=== PATIENT | male | born 1955 | race Caucasian/White ===

== ENCOUNTER 2021-08-05 08:00 | Outpatient (CLI) | payer MEDICARE, SELFPAY ==
--- NOTE | 2021-08-05 | IMM_PTH ---
PATIENT: MARIAH SUAZO LOC: [facility] U#:[id number] AGE/SX: 66/M ROOM: RE08/05/[address]: Dr. Carlos Booth MD : 1955 BED: DIS: 08/05/2021 SPEC #: [id number] RECD: 08/27/21 12:15 STATUS: JIN REQ #: [id number] RAYA: 08/05/21 00:[address]: Carlos Booth DEPT: IMMUNOHISTOCHEMISTRY RECD BY: Jessica Nieves ENTERED: 08/27/21 12:18 SP TYPE: IMMUNO OTHR DR: MD Elana Martinez, SOCIAL MEDIA EDITOR-C Tissues: C - PROSTATE LEFT Procedures: Synapto (add) MLH-1 (add) MSH6 (add) Anti-PMS2 (add) CEA (add) CHROMO (add) CK8 (add) MSH2 (initial) NSE (add) CD56 (initial) PHYSICIAN & INSTITUTION [address] [address] SPECIMEN INFORMATION: Tissue Source: C ? Left prostate, base, core biopsy Clinical Info: Malignant neoplasm of prostate Specimen Number: [id number] CPT code: 93370 x2, 42936 x9 METHODOLOGY: Deparaffinized sections of prefer/formalin-fixed tissue or PAP/DQ stained slides are incubated with monoclonal/polyclonal antibodies/oligonucleotide probes. Localization is made via biotin free immunoperoxidase method. Appropriate controls are performed and reacted as expected. Results on target cell population are indicated in the following table: RESULTS: ANTIBODY / CLONE RESULT Block C MLH-1 (M1) positive MSH2 (25D12) positive MSH6 (44) positive PMS2 (NKL3836) positive These tests were developed and their performance characteristics determined by [facility]. They may not have been cleared or approved by the U.S. Food and Drug Administration. The FDA has determined that such clearance or approval is not necessary. The above immunohistochemical/dualISH markers are ordered by Dr. Upton and reviewed by the Pathologist. INTERPRETATION: C. Left prostate, base, core biopsy: Result of Microsatellite Instability Study: Negative (no loss of mismatch protein; no microsatellite instability detected). AM:christa 08/28/2021 ADDENDUM ADDENDUM ADDENDUM ADDENDUM ADDENDUM ADDENDUM ADDENDUM ADDENDUM ADDENDUM ADDENDUM ADDENDUM ADDENDUM ADDENDUM ADDENDUM ADDENDUM ADDENDUM 09/10/2021 12:06 ADDENDUM 09/10/2021 12:06 ADDENDUM 09/10/2021 12:06 ADDENDUM 09/10/2021 12:06 ADDENDUM 09/10/2021 12:06 ANTIBODY / CLONE RESULT Block A CD56 (123C3.D5) negative Chromo (LK2H10) negative Synapto (polyclonal) negative NSE Neuron Specific Enolase negative CK8 (54tjcoB11) positive CEA (11-7/TF-3HB-1) negative The above immunohistochemical/dualISH markers are ordered by Dr. Upton and reviewed by the pathologist. A. Right prostate, mid, core biopsy: No evidence of neuroendocrine differentiation. AM:christa 09/10/2021
--- NOTE | 2021-08-05 | PROSBIL_PTH ---
PATIENT: MARIAH SUAZO [facility]: [facility] U#:[id number] AGE/SX: 66/M ROOM: RE08/05/[address]: Dr. Carlos Booth MD : 1955 BED: DIS: 08/05/2021 SPEC #: [id number] RECD: 08/06/21 09:55 STATUS: JIN DESTINY #: [id number] RAYA: 08/05/21 00:[address]: Carlos Booth DEPT: SURGICAL PATHOLOGY RECD BY: Mina Tavarez ENTERED: 08/06/21 09:56 SP TYPE: PROST BX RAJI DR: Elana Cobb, FORKLIFT SUPERVISOR-C Tissues: A - PROSTATE RIGHT B - PROSTATE LEFT C - PROSTATE LEFT Procedures: PROSTATE BX HEADER OPERATION: Prostate biopsy PRE-OP DIAGNOSIS: Elevated PSA TISSUE SUBMITTED: A - Right mid, B - Left mid, C - Left base MICROSCOPIC DIAGNOSIS A. Right prostate, mid, core biopsy: Adenocarcinoma. Rudolph grade: 10 (5+5) Cores involved: 2 out of 2 cores Tissue involved: 100% Greatest tumor length: 9 millimeters B. Left prostate, mid, core biopsy: Adenocarcinoma. Rudolph grade: 10 (5+5) Cores involved: 2 out of 2 cores Tissue involved: 100% Greatest tumor length: 4.5 millimeters C. Left prostate, base, core biopsy: Adenocarcinoma. Yossi grade: 10 (5+5) Cores involved: 1 out of 1 core Tissue involved: 100% Greatest tumor length: 10.5 millimeters Perineural invasion: Present AM:christa 08/07/2021 MICROSCOPIC DESCRIPTION Slides are reviewed. GROSS DESCRIPTION A - Received is one container designated prostate, right mid. The specimen consists of two elongated fragments of light ocampo-white soft tissue each measuring 1.5 cm in length and 0.1 cm in diameter. The specimen is totally submitted in one cassette. B - Received is one container designated prostate, left mid. The specimen consists of two elongated fragments of light ocampo-white soft tissue each measuring 1.5 cm in length and 0.1 cm in diameter. The specimen is totally submitted in one cassette. C - Received is one container designated prostate, left base. The specimen consists of one elongated fragment of light ocampo-white soft tissue measuring 1.5 cm in length and 0.1 cm in diameter. The specimen is totally submitted in one cassette. / AM:christa 08/06/2021 TC:0 CPT: G0146 ADDENDUM ADDENDUM ADDENDUM ADDENDUM ADDENDUM ADDENDUM ADDENDUM ADDENDUM ADDENDUM ADDENDUM ADDENDUM ADDENDUM ADDENDUM ADDENDUM ADDENDUM ADDENDUM ADDENDUM 09/15/2021 09:27 ADDENDUM 09/15/2021 09:27 ADDENDUM 09/15/2021 09:27 ADDENDUM 09/15/2021 09:27 ADDENDUM 09/15/2021 09:27 ONKOSIGHT ADVANCED PROSTATE NGS REPORT FROM [facility] RESULT SUMMARY: Normal IMMUNOTHERAPY BIOMARKERS: Tumor Mutation [place]: Low (4.7 Mutations / MB) Microsatellite Instability: MSI Negative PERTINENT NEGATIVE RESULTS: The following genes are NEGATIVE for clinically relevant mutations. Mutational hotspots and surrounding exonic regions were interrogated for DNA level point mutations and indels (fusions not assayed). AR, ARID1A, DAVID, ATR, BARD1, BRCA1, BRCA2, BRIP1, CDK12, CHEK1, CHEK2, EPCAM, PSB289W, FANCA, FANCL, GEN1, HOXB13, MLH1, MRE11A, MSH2, MSH6, MUTYH, NBN, NTRK1, PALB2, PMS2, MRH9E8Q, PTEN, RAD51B, RAD51C, RAD51D, RAD54L, RB1, TERT, TP53 Please see complete report in e-chart or EMR
== END 2021-08-05 23:59 | disposition short-term general hospital (02) ==
PROVIDERS: PCP Nurse Practitioner Primary Care; Visit Provider Urology
DX: C61 Malignant neoplasm of prostate (principal)
CPT/HCPCS: 88305; 88341; 88342; G0416

== ENCOUNTER 2021-08-13 12:52 | Outpatient (CLI) | payer MEDICARE, OTHER, SELFPAY ==
--- NOTE | 2021-08-13 13:05 | CT_ITS ---
STUDY: CT ABDOMEN AND PELVIS WITH CONTRAST REASON FOR EXAM: Male, 66 years old. PROSTATE CA-NEW DIAGNOSIS RADIATION DOSAGE (If Supplied By Facility): CTDIvol = ( 17.23 ) mGy, DLP = ( 2058.13 ) mGycm TECHNIQUE: Transaxial images were obtained from the dome of the diaphragm to the symphysis pubis without oral contrast. IV 100mL Isovue-370 was administered. Sagittal and coronal images were reconstructed. Individualized dose optimization techniques were used for this CT. COMPARISON: None. FINDINGS: There are small scattered noncalcified nodules at the lung bases. A dedicated CT scan of the chest is recommended for further evaluation. The visualized portions of the heart are within normal limits. Normal liver. The gallbladder is contracted. Normal spleen. Normal pancreas. 51.3 cm fat-containing nodule in the upper aspect of the left adrenal gland suggestive of a small lipoma. There is also evidence of a 1.9 cm x 1.9 cm hypodense nodule in its inferior portion. This is not a typical cyst. A metastatic deposit should be ruled out. Mild degree of right hydronephrosis and right hydroureter down to the right ureterovesical junction. There is diffuse bladder wall thickening along the right side of the bladder. There is a marked degree of enlargement of the prostate gland. This is heterogeneous in appearance. It measures 7.7 cm x 9.3 cm by 6.8 cm. This extends into the base of the bladder worse on the right side most likely causing the right-sided hydronephrosis and hydroureter. Normal left kidney. Normal visualized stomach. Normal small intestine. Normal colon. The appendix is visualized and appears normal. Normal abdominal aorta. Normal inferior vena cava. Normal retroperitoneum. Normal abdominal wall. There are diffuse degenerative changes of the visualized lumbar spine. CT/Abdomen/Pelvis W IV Cont ONLY IMPRESSION: Moderate degree of heterogeneous enlargement of the prostate gland as described with extension into the base of the bladder and the right side of the bladder causing a mild degree of right hydronephrosis and right hydroureter. Nodular densities in the left adrenal gland as described. Noncalcified pulmonary nodules. Correlation with the CT scan of the chest is recommended for further evaluation. Electronically Signed: Raj Keller MD at 14:58 EST ,
[2021-08-13 13:36] LABS: EGFR FINGERSTICK > 60.0000 mL/min (>60)
== END 2021-08-13 23:59 | disposition home or self-care (01) ==
PROVIDERS: PCP Nurse Practitioner Primary Care; Referring Provider Urology; Visit Provider Urology
DX: C61 Malignant neoplasm of prostate (principal)
CPT/HCPCS: 74177; Q9967

== ENCOUNTER 2021-08-15 07:28 | Outpatient (CLI) | payer MEDICARE, OTHER, SELFPAY ==
--- NOTE | 2021-08-15 07:37 | NM_ITS ---
CLINICAL: 66-year-old male with reported history of carcinoma of the prostate. WHOLE BODY 99m Tc MDP RADIONUCLIDE BONE SCINTIGRAPHY COMPARISON: CT of the abdomen-pelvis report 08/13/2021 FINDINGS: Following the intravenous administration of 20.7 mCi of 99m Tc MDP, whole body bone images reveal: 1. Multiple foci of increased radiopharmaceutical concentration are defined within the axial skeletal structures (too many to individually articulate) to include multiple bilateral ribs, thoracic and lumbar vertebra, left sacral ala, posterior ilium and posterior sacrum, the right superior pubic ramus, the pubic symphysis, mid-distal sternum. 2. Facilitated tracer uptake is defined in the left ankle articulation, sternoclavicular compartment of the left shoulder, bilateral wrists. 3. The remaining skeletal structures are scintigraphically unremarkable with normal-appearing renal images and urinary bladder activity identified. There appears to be evidence of presumably asymptomatic bilateral knee hemiarthroplasties with minimal increased tracer uptake most consistent with normal postsurgical change. NM/Bone Scan Whole Body IMPRESSION: 1. The increase in radiopharmaceutical concentration multifocally defined in the axial skeletal structures is consistent with diffuse osseous metastatic disease. 2. 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 Plain film radiography correlation may be of benefit in the region of the left ankle to exclude previous trauma-fracture. Electronically Signed: Navarro Spear DO at 7:55 EST ,
== END 2021-08-15 23:59 | disposition home or self-care (01) ==
PROVIDERS: PCP Nurse Practitioner Primary Care; Referring Provider Urology; Visit Provider Urology
DX: C61 Malignant neoplasm of prostate (principal)
CPT/HCPCS: 78306; A9503

== ENCOUNTER 2021-08-27 09:32 | Day surgery (SDC) | payer MEDICARE, SELFPAY ==
--- NOTE | 2021-08-26 09:21 | EKG12_ITS ---
Test Reason : PREOP Blood Pressure : / mmHG Vent. Rate : 083 BPM Atrial Rate : 083 BPM P-R Int : 140 ms QRS Dur : 092 ms QT Int : 372 ms P-R-T Axes : 027 -03 015 degrees QTc Int : 437 ms Normal sinus rhythm Normal ECG Confirmed by BRITTANI VICENTE, JEANIE ([id number]), scientific publications editor SHARMAINE LOU ([id number]) on 08/27/2021 8:13:49 AM Referred By: Calros Booth Confirmed By:JEANIE PETER MD
[2021-08-27] VITALS (12 sets, daily range): BP systolic 71–153; BP diastolic 34–106; PULSE 53–83; RESP 16–18; TEMP 36–36.6; O2SAT 93–100; BMI 29.6; BMI 30.1
--- NOTE | 2021-08-27 | TEST_PTH ---
PATIENT: MARIAH SUAZO [place] [facility] [place][id number] AGE/SX: 66/M ROOM: RE08/27/[address]: Dr. Carlos Booth MD : 1955 BED: DIS: 08/28/2021 SPEC #: [id number] RECD: 08/27/21 14:47 STATUS: JIN RERaj #: [id number] RAYA: 08/27/21 00:[address]: Carlos Booth DEPT: SURGICAL PATHOLOGY RECD BY: Mina Tavarez ENTERED: 08/28/21 08:45 SP TYPE: TESTICLE OTHR DR: Elana Cobb, K9 HANDLER-C Tissues: A - Testis, NOS B - Prostate, NOS Procedures: Surgery Specimen Level IV HEADER OPERATION: Cysto, transurethral prostate, Olympus, bilateral simple orchiectomy PRE-OP DIAGNOSIS: Malignant neoplasm of prostate, elevated PSA TISSUE SUBMITTED: A ? Bilateral testicles, B ? Prostate tissue MICROSCOPIC DIAGNOSIS A. Right and left testicles, bilateral orchiectomy: No pathologic change. B. Prostate, transurethral resection: Prostatic adenocarcinoma, Yossi 10 (5+5). See comment. AM:christa 09/01/2021 COMMENT A. PROSTATE CANCER (TUR) SUMMARY: Procedure: transurethral resection of prostate (TURP) Histologic type: adenocarcinoma Histologic grade: Percent of pattern 4: 0% Percent of pattern 5: 100% Intraductal carcinoma: Not identified Estimated percent of tissue involved: 30% Greatest dimension: 8 mm Periprostatic fat invasion: Not applicable Seminal vesicle invasion: Not applicable Lymphvascular invasion: Not identified Perineural invasion: Not identified Treatment effect: Unknown Additional pathologic findings: Chronic inflammation and benign hyperplasia. The above summary is in compliance with [employer] of [place] [employer] (CAP) Cancer Protocols Checklist and [place] Joint Committee on Cancer (AJCC), Staging Manual, 8th Ed. A. Immunohistochemistry ([id number]) supports the above diagnosis. Clinical correlation is suggested. Reference is made to the patient's previous prostate biopsies ([id number]) in which [place]putanta grade 10 prostatic adenocarcinoma was identified. MICROSCOPIC DESCRIPTION Slides are reviewed. GROSS DESCRIPTION A - Received in fixative is one container labeled with the patient's name and designated bilateral testes. The specimen consists of two testes that are not designated. The average dimension of each testis is 5 x 3.8 x 3 cm. Serial sections do not reveal mass lesions. Help Desk Support sections are submitted as follows: 1-3 ? sales representative meats sections from one testis, 4-6 ? sales representative meats sections from the other testis. B - Received is one container labeled with the patient's name and designated prostate tissue. The specimen consists of multiple irregular fragments of pink-ocampo, rubbery, soft tissue that in aggregate weigh 7.5 gm and measure in aggregate 6 x 5 x 0.4 cm. The entire specimen is submitted in six cassettes. / AM:christa 08/28/2021 TC:0 CPT: 50336 x3
--- NOTE | 2021-08-27 | IMM_PTH ---
PATIENT: MARIAH SUAZO LOC: [facility] [place] U#:[id number] AGE/SX: 66/M ROOM: RE08/27/[address]: Dr. Carlos Booth MD : 1955 BED: DIS: 08/28/2021 SPEC #: [id number] RECD: 08/29/21 11:47 STATUS: JIN REQ #: [id number] RAYA: 08/27/21 00:[address]: Carlos Booth DEPT: IMMUNOHISTOCHEMISTRY RECD BY: Jessica Nieves ENTERED: 08/29/21 11:48 SP TYPE: IMMUNO OTHR DR: Elana Cobb, MIGRANT LEADER-C Tissues: B - Prostate, NOS Procedures: CK20 (add) CK7 (add) CK8 (add) CD44 (add) PSA (initial) PHYSICIAN & INSTITUTION [place] [address] SPECIMEN INFORMATION: Tissue Source: B ? Prostate tissue Clinical Info: Malignant neoplasm of prostate, elevated PSA Specimen Number: [id number] CPT code: 87511, 92603 x4 METHODOLOGY: Deparaffinized sections of prefer/formalin-fixed tissue or PAP/DQ stained slides are incubated with monoclonal/polyclonal antibodies/oligonucleotide probes. Localization is made via biotin free immunoperoxidase method. Appropriate controls are performed and reacted as expected. Results on target cell population are indicated in the following table: RESULTS: ANTIBODY / CLONE RESULT Block B4 PSA (ER-PR8) positive CK7 (OV-TL12/30) negative CK8 (71yfabO13) positive CK20 (KS20.8) negative anti-CD44 (SP37) positive These tests were developed and their performance characteristics determined by [facility]. They may not have been cleared or approved by the U.S. Food and Drug Administration. The FDA has determined that such clearance or approval is not necessary. The above immunohistochemical/dualISH markers are ordered and reviewed by the Pathologist. INTERPRETATION: B. Prostate, transurethral resection: Consistent with prostatic carcinoma. AM:christa 09/01/2021
[2021-08-27] MEDS: Lactated Ringers 1,000 ML 15 ML IV ×2 (09:45→14:38)
[2021-08-27] MEDS: Cefazolin 2 GM in 0.9% Normal Saline 100 ML IV (12:35)
[2021-08-27] MEDS: Bupivacaine Mpf 0.5% 30 ML VIAL (13:00)
--- NOTE | 2021-08-27 14:33 | PCM.HP.STD ---
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 [facility] Medical History (Updated 08/25/21 @ 16:[address] Adiel Upton MD) Alcohol use Bone metastases Former smoker Lung nodules Prostate cancer Home Medications bicalutamide [Casodex] 50 mg PO DAILY 30 Days #30 tab 08/25/21 [Rx Last Taken 08/26/21] calcium citrate-vitamin D3 1 tab PO DAILY 08/25/21 [History Last Taken 08/26/21] ciprofloxacin HCl [Cipro] 500 mg PO BID #14 tab 08/27/21 [Rx Last Taken Unknown] oxycodone-acetaminophen 1 tab PO Q6H PRN 7 Days #20 tab 08/27/21 [Rx Last Taken Unknown] tamsulosin [Flomax] 0.4 mg PO DAILY #30 cap 08/27/21 [Rx Last Taken Unknown] Allergy/AdvReac Type Severity Reaction Status Date / Time No Known Allergies Allergy Verified 08/25/21 13:00 Family History (Updated 08/25/21 @ 13:04 by Nikki Atkinson) Brother Lung cancer Brother Esophageal cancer Father Diabetes Surgical History (Updated 08/25/21 @ 13:01 by Nikki Atkinson) History of colonoscopy History of knee surgery Previous back surgery Social History (Updated 08/25/21 @ 13:03 by Nikki Atkinson) Smoking Status: Former smoker quit date: 07/05/03 Tobacco: How many years used: 15 alcohol intake: current alcohol intake frequency: a few times a week Alcohol type: beer substance use type: does not use caffeine: Yes Type: coffee Number of servings: 2 Vital Signs Vital Signs Vital Signs: 08/27/21 10:02 Temperature 97.6 F L Temperature Source Temporal Pulse Rate 79 Respiratory Rate 18 Respiratory Pattern Normal Blood Pressure 136/86 H Blood Pressure Mean 102 Blood Pressure Source Monitor Blood Pressure Position Semi-Fowlers Blood Pressure Location Left Arm Pulse Ox 98 Oxygen Delivery Method Room Air Weight Weight: 95 kg Body Mass Index (BMI) 29.6 Results Lab / Micro Data Micro: Microbiology 08/26/21 09:15 Interface Orders SARS-CoV-2 Antigen (Rapid) - Final
--- NOTE | 2021-08-27 14:33 | PCM.DC ---
Discharge Instructions Diet Discharge Diet: No restrictions Dressing / Incision Call your doctor if your incision/area has: Continuous Slow Oozing, Increased Pain/ Swelling, Increased Redness and Foul Smelling Discharge Call your doctor if you observe: Fever of 101 or Higher, Numbness or Tingling, Shortness of breath, Dizziness, Calf discomfort and Uncontrolled pain Follow Up Care Please Follow Up With: Carlos Booth MD Test Results: Test results from this visit will be discussed in further detail at your follow-up appointment, if applicable. Discharge Plan Admission Primary Reason for Your Visit: turp scrotal orchiectomy for prostate cancer Attending Provider: Carlos Booth Primary Care Provider: Elana Cobb NP Discharge Orders/Prescriptions Prescriptions: New oxycodone-acetaminophen 5-325 mg tablet 1 tab PO Q6H PRN (Reason: pain) 7 Days Qty: 20 RF: 0 tamsulosin [Flomax] 0.4 mg capsule 0.4 mg PO DAILY Qty: 30 RF: 5 ciprofloxacin HCl [Cipro] 500 mg tablet 500 mg PO BID Qty: 14 RF: 0 Continued calcium citrate-vitamin D3 315 mg-6.25 mcg (250 unit) tablet 1 tab PO DAILY RF: 0 bicalutamide [Casodex] 50 mg Tablet 50 mg PO DAILY 30 Days Qty: 30 RF: 0 Referrals / Follow Up: Carlos Booth MD [STAFF PHYSICIAN] - Elana Cobb NP, KARLY-C [Primary Care Provider] - Disposition Disposition (needs filled in before D/C Order can be placed): Home, Self Care
--- NOTE | 2021-08-27 14:33 | PCM.OPRPT ---
Report of Operation Date of Procedure: 08/27/21 Pre-Operative Diagnosis: Metastatic prostate cancer BPH with outlet obstruction Post-Operative Diagnosis: Same Surgery/Procedure Performed:: Multiple procedures Simple scrotal orchiectomy Transurethral resection of the prostate Description of Surgical Findings:: Patient was taken back to the operating room after smooth induction of general anesthesia he was placed in dorsolithotomy position. The scrotum was shaved prepped and draped in usual sterile fashion. I made incision the midline raphae infiltrated the midline scrotum with lidocaine dissected down to the right testicle delivered the testicle to the tunica vaginalis I then took these vas deferens with a clamp and ligated and then split the spermatic cord into pieces and then put a India clamp on both sides and then suture-ligated the the 2 spermatic cord remove the testicle, I then went to the left side delivered the testicle from the tunica vaginalis took the vas deferens with the India clamp and super suture-ligated that using 0 chromic, all this was using 0 chromic stitches, I then went to the left side I then split the spermatic cord and the 2 2 heavy India clamps were placed on this and then cut off the testicle from the cord testicles and had a specimen cauterized the ends and then suture-ligated the end of the spermatic cord and then closed the midline incision in 2 layers with a running Vicryl in a running 4-0 Monocryl. Patient was then reprepped and draped for a transurethral resection of prostate went in with the prostate with a 25 [place] continuous-flow resectoscope prostate was extremely hard very hard tissue on both sides I once I got inside the bladder identified the left ureteral orifice which was wide open no obstruction and the right side was covered with cancer and tumor I then resected the right side where the cancer was and then resected back to the prostate identified the verumontanum I resected all the tissue that was between the verumontanum and the prostate bladder neck after this was opened up we did a flow test he had a nice decent flow but as it was resecting on the especially the patient's right side it was extremely friable tissue look like prostate cancer tissue bled very easily had to cauterize extensively on the right side eventually I felt like I had slowed down the bleeding enough to to stop the procedure I opened up the prostate enough so that should help with voiding symptoms cauterized extensively more than we placed the catheter in the bladder irrigate out all the tumor chips these were sent off as a specimen but a 22 [place] catheter on continuous irrigation and the patient was admitted to the hospital for irrigation likely will be in the hospital day or 2 given the amount of bleeding from the bladder. Surgeon: akil Type of Anesthesia: General Drains: 22fr [address]
[2021-08-27] MEDS: oxyCODONE 5 MG Tablet PO (18:02)
[2021-08-27] MEDS: 0.9% Normal Saline 1,000 ML 75 ML IV (18:05)
[2021-08-28 00:09] VITALS: BP 128/65; PULSE 70; RESP 16; TEMP 36.6; O2SAT 99; BMI 30.1
[2021-08-28] MEDS: oxyCODONE 5 MG Tablet PO ×2 (02:01→06:43)
[2021-08-28 04:09] VITALS: BP 119/81; PULSE 85; RESP 16; TEMP 36.7; O2SAT 97; BMI 30.1
[2021-08-28] MEDS: 0.9% Normal Saline 1,000 ML 75 ML IV (06:43)
[2021-08-28 06:55] LABS: Anion Gap 3 (5-15); BUN 11 mg/dL (7-18); BUN/Creat Ratio 13.6 RATIO (10-20); Chloride 105 mmol/L (98-107); Creatinine, Serum 0.81 mg/dL (0.70-1.30); EST Glomerular Filtration Rate 101 mL/min (>60); Est Glom Filt Rate - Afr Amer 123 mL/min (>60); Estimated Creatinine Clearance 91.38 ml/min; Glucose 97 mg/dL (74-106); Potassium 3.6 mmol/L (3.5-5.1); Sodium Level 137 mmol/L (136-145)
[2021-08-28 08:09] VITALS: BMI 30.1
[2021-08-28 08:12] VITALS: BP 109/57; PULSE 81; RESP 16; TEMP 36.7; O2SAT 97
[2021-08-28] MEDS: BICALUTAMIDE 50 MG TABLET PO (08:39)
[2021-08-28] MEDS: Calcium Carb/Vitamin D 1 TABLET Tablet PO (08:39)
[2021-08-28 13:47] VITALS: BP 156/94; PULSE 100; RESP 18; TEMP 36.7; O2SAT 95
== END 2021-08-28 13:48 | disposition home or self-care (01) ==
LOC: SDC 09:32 → AC 09:33 → MS3 14:44
PROVIDERS: PCP Nurse Practitioner Primary Care; Referring Provider Urology; Visit Provider Urology
PROC: (CPT 52601; principal; 2021-08-27 11:50)
DX: C61 Malignant neoplasm of prostate (principal); C79.51 Secondary malignant neoplasm of bone; N40.1 Benign prostatic hyperplasia with lower urinary tract symptoms; N13.8 Other obstructive and reflux uropathy; R91.8 Other nonspecific abnormal finding of lung field; Z79.899 Other long term (current) drug therapy; Z87.891 Personal history of nicotine dependence
CPT/HCPCS: 52601; 54520; 00914; 80048; 87426; 88305; 88309; 88341; 88342; 93005; C9803; J7030; J7120; J2405

== ENCOUNTER 2021-09-02 07:08 | Outpatient (CLI) | payer MEDICARE, SELFPAY ==
--- NOTE | 2021-09-02 07:10 | CT_ITS ---
EXAM: CT CHEST WITH INTRAVENOUS CONTRAST : 1955 CLINICAL INDICATION: LUNG NODULES, PROSTATE CANCER TECHNIQUE: Helically acquired images were obtained of the chest with intravenous contrast. This CT exam was performed using one or more of the following dose reduction techniques: automated exposure control, adjustment of the mA and/or kV according to patient size, and/or use of iterative reconstruction technique. This report was created using [employer] report generation technology. CONTRAST: IV 100mL Isovue-300 COMPARISON: CT abdomen and pelvis August 13, 2021 FINDINGS: LUNGS AND PLEURAL SPACES: Multiple bilateral pulmonary nodules are noted largest one measuring 12 mm within the right upper lobe compatible with metastatic lung disease. No pleural effusion or thickening. No pneumothorax. HEART: Unremarkable. Heart size is normal. No pericardial effusion. No significant coronary artery calcifications. MEDIASTINUM: 18 x 14 mm pretracheal mediastinal lymph node noted as well as smaller bilateral hilar lymph nodes raise the possibility of metastatic disease. Esophagus is unremarkable. No hiatal hernia. THYROID: Unremarkable. No thyroid lesions. BONES/JOINTS: Osteoblastic bony metastases noted within the visualized spine, start him and right first and sixth ribs. VASCULATURE: Unremarkable. Thoracic aorta is non-dilated. No thoracic aortic dissection. No obvious central pulmonary embolism although this study was not performed with the pulmonary embolism protocol. LYMPH NODES: Adenopathy along the hepatoduodenal ligament is stable. ADRENALS: 2.4 cm solid left adrenal mass again noted as well as 15 mm fat-containing left adrenal nodule. KIDNEYS AND URETERS: Obstructive changes of the right renal collecting system again seen. CT/Chest WITH Contrast IMPRESSION: 1. Bilateral pulmonary nodules, mildly enlarged mediastinal and hilar lymph nodes, 2.4 cm left adrenal mass and adenopathy along the hepatoduodenal ligament which may all represent metastatic disease. 2. Osteoblastic bony metastases. 3. Persistent obstructive changes of the right renal collecting system. Individualized dose optimization techniques were used for this CT. at 0944 Reported and signed by: Miles Montero MD Electronically Signed: Miles Montero MD at 9:43 EST Reading Location ID and State: [address] [place] [address] Tel , Service support ,
== END 2021-09-02 23:59 | disposition home or self-care (01) ==
LOC: CT 07:09
PROVIDERS: PCP Nurse Practitioner Primary Care; Referring Provider Internal Medicine Hematology & Oncology; Visit Provider Internal Medicine Hematology & Oncology
DX: R91.8 Other nonspecific abnormal finding of lung field (principal); C61 Malignant neoplasm of prostate
CPT/HCPCS: 71260; Q9967

== ENCOUNTER 2021-09-05 08:52 | Outpatient (CLI) | payer MEDICARE, SELFPAY ==
[2021-09-05] VITALS (11 sets, daily range): BP systolic 133–156; BP diastolic 76–92; PULSE 70–87; RESP 12–20; TEMP 36.3; O2SAT 96–99; BMI 30.1
--- NOTE | 2021-09-05 | IMM_PTH ---
PATIENT: MARIAH SUAZO LOC: CT U#:[id number] AGE/SX: 66/M ROOM: RE09/05/[address]: Dr. Adiel Upton MD : 1955 BED: DIS: 09/05/2021 SPEC #: [id number] RECD: 09/05/21 13:35 STATUS: JIN REQ #: [id number] RAYA: 09/05/21 00:[address]: Adiel Upton DEPT: IMMUNOHISTOCHEMISTRY RECD BY: Jessica Nieves ENTERED: 09/05/21 13:38 SP TYPE: IMMUNO OTHR DR: Elana Cobb, APPLIANCE FIXER-C Tissues: Adrenal gland, NOS Procedures: RCC (add) NAPSIN A (add) CK20 (add) CK5-6 (add) CK7 (add) CK8 (add) HEP PAR (add) TTF1 (add) Pankeratin (initial) P40 (add) PSAP (add) PHYSICIAN & [address] [address] SPECIMEN INFORMATION: Tissue Source: Left adrenal mass Clinical Info: Left adrenal mass, prostate cancer Specimen Number: [id number] CPT code: 38975, 76221 x10 METHODOLOGY: Deparaffinized sections of prefer/formalin-fixed tissue or PAP/DQ stained slides are incubated with monoclonal/polyclonal antibodies/oligonucleotide probes. Localization is made via biotin free immunoperoxidase method. Appropriate controls are performed and reacted as expected. Results on target cell population are indicated in the following table: RESULTS: ANTIBODY / CLONE RESULT AE1-3 (AE1/AE3/PCK26) positive CK7 (OV-TL12/30) negative CK8 (82exliA42) positive CK20 (KS20.8) negative TTF-1 (8G7G3/1) negative Napsin A (Rabbit Polyclonal) negative HepPar (OCh1E5) negative RCC (PN-15) negative PSAP (PASE/4LJ) positive CK5-6 (D5 & 1684) negative P40 (BC28) negative These tests were developed and their performance characteristics determined by [facility]. They may not have been cleared or approved by the U.S. Food and Drug Administration. The FDA has determined that such clearance or approval is not necessary. The above immunohistochemical/dualISH markers are ordered and reviewed by the Pathologist. INTERPRETATION: Left adrenal mass, CT-guided biopsy: Metastatic adenocarcinoma, consistent with prostate primary. SJ:christa 09/08/2021 Case has been reviewed in consultation with Dr. Phillips who concurs with the above diagnosis. IDC:[email or web address]
[2021-09-05 08:36] LABS: Absolute Lymphocyte Count 1.22 X10^3/uL (0.83-4.51); Absolute Neutrophil Count 3.4 X10^3/uL (2.0-7.7); Basophil# 0.05 X10^3/uL; Basophil% 0.9 % (0-1); Eosinophil# 0.31 X10^3/uL; Eosinophils% 5.7 % (0-5); Hematocrit 42.7 % (40-54); Hemoglobin 14.2 g/dL (13.0-16.5); Lymphocyte # 1.22 X10^3/ul (0.83-4.51); Lymphocyte % 22.4 % (19-41); Mean Corp Hgb Conc 33.3 g/dL (32-36); Mean Corpuscular Hgb 29.4 pg (27.0-32.0); Mean Corpuscular Volume 88.4 fL (80-94); Mean Platelet Vol. 9.5 fl (6.2-12.0); Monocyte% 9.2 % (0-10); NRBC Flagged by Analyzer 0 % (0-5); Neutrophil # 3.35 X10^3/uL (2.7-7.7); Neutrophil % 61.4 % (47-70); Platelet Count 314 K/mm3 (150-450); RBC Distribution Width CV 13.9 % (11.6-14.6); RBC Distribution Width SD 44.8 fl (35.1-43.9); Red Blood Count 4.83 M/mm3 (4.6-6.2); White Blood Count 5.5 K/mm3 (4.4-11.0)
[2021-09-05 08:47] LABS: Prothrombin Time (Protime)PT. 12.4 SECONDS (11.7-14.9)
[2021-09-05 08:48] LABS: Partial Thromboplast Time 27.6 Seconds (24.1-36.2)
--- NOTE | 2021-09-05 10:00 | ASPIGT_PTH ---
PATIENT: MARIAH SUAZO LOC: [place] U#:[id number] AGE/SX: 66/M ROOM: RE09/05/[address]: Dr. Adiel Upton MD : 1955 BED: DIS: 09/05/2021 SPEC #: [id number] RECD: 09/05/21 10:30 STATUS: JIN RERaj #: [id number] RAYA: 09/05/21 10:[address]: Adiel Upton DEPT: SURGICAL PATHOLOGY RECD BY: Madeleine Palacio ENTERED: 09/05/21 10:57 SP TYPE: ASP RAD OTHR DR: Elana Cobb, SQUARING MACHINE OPERATOR-C Tissues: Adrenal gland, NOS Procedures: FNA Specimen Adequacy Special Stain Group II Surgery Specimen Level IV Imprint (control) HEADER OPERATION: CT-guided left adrenal biopsy PRE-OP DIAGNOSIS: Adrenal mass, prostate cancer TISSUE SUBMITTED: Left adrenal mass, 18-gauge core x6 MICROSCOPIC DIAGNOSIS Left adrenal mass, CT-guided core biopsy: Metastatic adenocarcinoma consistent with prostate primary. See comment. SJ:rg 09/08/2021 COMMENT The specimen is evaluated at the time of biopsy by Dr. Andres. Immediate Evaluation = Malignant cells present derived from non-small cell carcinoma. Clinical correlation and appropriate follow up are necessary. Immunohistochemistry ([id number]) supports the above diagnosis. Please make reference to previous specimens ([id number]) right prostate, mid, left prostate, mid and base, core biopsies and ([id number]) prostate, transurethral resection with diagnosis of ?prostatic adenocarcinoma, Yossi grade 5+5=10.? Case has been reviewed in consultation with Dr. Phillips who concurs with the above diagnosis. IDC:AM MICROSCOPIC DESCRIPTION Slides are reviewed. GROSS DESCRIPTION Received in fixative is one container labeled with the patient's name and designated left adrenal mass, CT-guided core biopsy. The specimen consists of multiple fragments of hemorrhagic soft tissue that in aggregate measure 2 x 0.1 x 0.1 cm. The specimen is totally submitted in one cassette. Seven touch imprints are prepared at the time of core biopsy. / ANGELA:christa 09/05/2021 TC:0 CPT: 47440, 71835
--- NOTE | 2021-09-05 10:03 | CT_ITS ---
PROCEDURE: CT GUIDED biopsy of the left adrenal gland. DATE: 09/05/2021. INDICATION: Male, 66 years old. Left adrenal mass. History of prostate cancer. PHYSICIAN: Raj Keller M.D. RADIATION DOSAGE (If Supplied By Facility): CTDIvol = ( 22.2 ) mGy, DLP = ( 464.73 ) mGycm. Individualized dose optimization techniques were utilized. PROCEDURE: The risks, benefits, and alternatives to the procedure were explained to the patient. The specific risk of hemorrhage requiring further treatment or intervention was detailed and accepted. Follow-up instructions were discussed with the patient as well. Written informed consent was obtained. The patient was brought into the CT suite and placed in the supine position. . An appropriate entry site was identified. The overlying skin was prepped and draped in the usual sterile fashion. 1% lidocaine was administered subcutaneously for local anesthesia. Conscious sedation was performed. The patient received 2 mg of VERSED and 50 mcg of FENTANYL intravenously. Conscious sedation was started at 10:12 AM and terminated at 10:31 AM the patient was independently monitored by the department nurse. Under CT guidance, a total of 6 passes were performed utilizing an 18-gauge core biopsy needle The specimens were then placed in the appropriate fluid and transported to the laboratory for analysis. Hemostasis was obtained. The patient tolerated the procedure well without immediate complications. CT/Biopsy/Inj or Needle Placement IMPRESSION: Successful CT guided left adrenal core biopsy, as described above. Conscious sedation protocol was followed. Electronically Signed: Raj Keller MD at 11:17 EST ,
[2021-09-05] MEDS: Midazolam 2 MG/2 ML Syringe IV (10:12)
[2021-09-05] MEDS: fentaNYL 100 MCG/2 ML Ampul IV (10:14)
[2021-09-05] MEDS: Lidocaine 2% (20 ml mdv) 20 ML Vial INFILT (10:25)
== END 2021-09-05 23:59 | disposition home or self-care (01) ==
PROVIDERS: PCP Nurse Practitioner Primary Care; Referring Provider Internal Medicine Hematology & Oncology; Visit Provider Internal Medicine Hematology & Oncology
DX: Z01.812 Encounter for preprocedural laboratory examination (principal); C79.72 Secondary malignant neoplasm of left adrenal gland; C79.51 Secondary malignant neoplasm of bone; C61 Malignant neoplasm of prostate; Z79.899 Other long term (current) drug therapy; Z87.891 Personal history of nicotine dependence
CPT/HCPCS: 49180; 36415; 77012; 85025; 85610; 85730; 88172; 88305; 88313; 88341; 88342; 99156; J7040; A4216

== ENCOUNTER → 2022-02-02 | Outpatient (CLI) | payer MEDICARE, SELFPAY ==
--- NOTE | 2022-02-02 08:06 | NM_ITS ---
CLINICAL: 66-year-old male with reported history of carcinoma of the prostate. WHOLE BODY 99m Tc MDP RADIONUCLIDE BONE SCINTIGRAPHY COMPARISON: Whole body bone scintigraphy study dated 08/15/2021 FINDINGS: Following the intravenous administration of 25.0 mCi of 99m Tc MDP, whole body bone images reveal: 1. Increased radiopharmaceutical concentration remains apparent in the left sacroiliac joint, fifth rib anteriorly on the right, the mid-lower thoracic spine with a marked reduction in the intensity of uptake on the current examination compared to the study dated 08/15/2021. The overall number of identified scintigraphic abnormalities is decreased. 2. Increased uptake remains apparent in the bilateral shoulders, knee articulations bilaterally, the left wrist. 3. The remaining skeletal structures are scintigraphically unremarkable with normal-appearing renal images identified bilaterally. IMPRESSION 1. There is persistent skeletal metastatic disease involving the left sacroiliac joint, fifth rib anteriorly on the right, the mid to lower thoracic spine with a significant interim decrease in the intensity of uptake. 2. Additional previously defined scintigraphic abnormalities within the osseous skeleton are not visualized on the present examination. 3. 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 4. Overall compared to the study dated 08/15/2021, there is marked interim improvement of defined viable skeletal metastatic disease. Electronically Signed: Navarro Spear, at 14:49 EDT , NM/Bone Scan Whole Body IMPRESSION: undefined
== END | disposition home or self-care (01) ==
PROVIDERS: PCP Nurse Practitioner Primary Care; Referring Provider Internal Medicine Hematology & Oncology; Visit Provider Internal Medicine Hematology & Oncology
DX: Z85.46 Personal history of malignant neoplasm of prostate (principal); C79.51 Secondary malignant neoplasm of bone; C80.1 Malignant (primary) neoplasm, unspecified
CPT/HCPCS: 78306; A9503

== ENCOUNTER → 2022-02-05 | Outpatient (CLI) | payer MEDICARE, SELFPAY ==
--- NOTE | 2022-02-05 07:47 | CT_ITS ---
INDICATION: F/U METASTATIC PROSTATE CANCER ON RX EXAMINATION: CT CHEST, ABDOMEN AND PELVIS WITH CONTRAST - CT Chest Abdomen And Pelvis W/ Contrast Injection TECHNIQUE: Helically acquired images were obtained of the chest, abdomen, and pelvis following IV contrast. CTA protocol with 3D reformats were performed. A radiation dose optimization technique was used for this scan. IV Contrast dosage and agent: 100 mL of ISOVUE 300. Oral contrast: None. COMPARISON: 09/02/2021.. FINDINGS: ----Chest: LUNGS, PLEURA AND LARGE AIRWAYS: The parenchymal lung masses are visualized on the prior study are not seen on today''s study. No evidence of parenchymal lung masses or nodules is seen. No evidence of focal infiltrate or consolidation. No evidence of pleural effusion or thickening. No pneumothorax. THYROID: No thyroid lesions. HEART AND PERICARDIUM: Heart size is normal. No pericardial effusion. VESSELS: Thoracic aorta is not dilated. No aortic dissection. No obvious central pulmonary embolism although this study was not performed with the pulmonary embolism protocol. MEDIASTINUM AND EDITH: Multiple enhancing nodules visualized in the right lateral aspect of the superior mediastinum the largest of which measures 1.1 cm visualized on axial series 2 image 17 that demonstrate no significant change in comparison to the prior study. 0.7 x 0.5 cm lymph nodes visualized in the left superior mediastinum along the left lateral aspect of the esophagus visualized on axial series 2 image 28 demonstrates decrease in size in comparison to the prior study where it had measured 1.2 x 0.8 cm and was seen on prior study series 2 image 25. Right precarinal lymph node visualized on axial series 2 image 48 is seen measuring 0.8 x 1.2 cm, demonstrating significant decrease in size in comparison to the prior study where it had measured 1.6 x 2.1 cm. Esophagus is unremarkable. No hiatal hernia. BONES: Sclerotic lesions visualized in the thoracic vertebral bodies, the sternum and the right rib cage demonstrate no significant change in comparison to the prior study. ----Abdomen/Pelvis: LIVER: Homogeneous. No focal mass. GALLBLADDER AND BILIARY TREE: The gallbladder is contracted, no evidence of gallbladder wall thickening, no evidence of pericholecystic stranding is seen. A 0.2 cm calcification is visualized in the neck/cystic duct. No intra- or extrahepatic biliary ductal dilation. PANCREAS: No focal cystic or solid mass. SPLEEN: Normal size without focal cystic or solid mass. ADRENAL GLANDS: 1.6 cm low-attenuation lesion visualized in the left adrenal gland demonstrates no significant change in comparison to the prior study. KIDNEYS AND URETERS: Mild right hydronephrosis and proximal hydroureter is visualized, enhancement of the wall of the ureter is visualized, the mid and distal right ureter demonstrates irregularity in the contour, a nodularity is visualized in the mid right ureter is visualized on axial series 3 image 62, coronal series 604 image 66 this measures 1.6 x 1.1 cm, worrisome for a mass/transitional cell carcinoma. Irregularity in the contour of the distal ureter with focal dilatations visualized, on axial series 3 image 76 the ureter measures 1.6 x 1.8 cm in cross-sectional diameter, no evidence of obstructing stone is visualized, secondary to malrotation the distal ureter is visualized with narrowing seen in the distal right ureter approximately 2 cm from the right ureterovesical junction seen on axial series 3 image 93 and on sagittal series 605 image 82, mild stranding of the adjacent fat planes is visualized at this level. Soft tissue densities and wall irregularity visualized at the right ureterovesical junction visualized on axial series 3 image 97 and on sagittal series 605 image 82. The left kidney is unremarkable, no evidence of left hydronephrosis or hydroureter is seen. PERITONEUM: No ascites or free air. No other fluid collection. BOWEL: No evidence of acute appendicitis. No stomach or bowel distension. No focal inflammatory change. LYMPH NODES: No enlarged mesenteric or retroperitoneal lymph nodes. VESSELS: Aorta is non-dilated. URINARY BLADDER: Irregular thickening of the wall of the urinary bladder is seen. REPRODUCTIVE ORGANS: Heterogeneous attenuation visualized in the prostate bed with surgical iveth. ABDOMINAL WALL: Left inguinal hernia with herniation of omentum visualized. BONES: Sclerotic bone lesions visualized: A 1.4 cm sclerotic lesion is visualized within the right lateral aspect of the L1 vertebral body visualized on axial series 3 image 32, a 1.6 cm sclerotic lesion visualized in the anterior aspect of the L4 to vertebral body in the midline seen on axial series 3 image 41, sclerotic lesion visualized within the S1 vertebral body seen on axial series 3 image 75, within the left sacral promontory seen on axial series 3 image 72, within the left ischium seen on axial series 3 image 75, within the right pubic symphysis seen on axial series 3 image 105 and within the right proximal femur seen on axial series [address]/CT Chest, Abd, Pel w/Contrast IMPRESSION: Chest: The parenchymal lung masses are visualized on the prior study are not seen on the current study, have completely resolved, Superior mediastinal right lateral lymph nodes/masses demonstrates no significant change in comparison to the prior study. Mediastinal lymph nodes demonstrates significant decrease in size in comparison to the prior study. Sclerotic bone lesions demonstrate no change in comparison to the prior study. Abdomen pelvis: Heterogeneous attenuation and enhancement within the prostate gland with irregularity in contour. Thickening and irregularity of the wall of the urinary bladder. 1.6 cm low-attenuation lesion visualized in the left adrenal gland demonstrates no significant change in comparison to the prior study. Irregularity in the contour of the right ureter with wall enhancement seen, focal areas of for myelination visualized, areas of soft tissue density is visualized within the ureter that could represent urinary serial cancer. A stricture is visualized in the distal right ureter approximately 2 cm from the right ureterovesical junction. Thickening of the wall of the urinary bladder is visualized. Extensive sclerotic bone lesions visualized consistent with metastatic disease. Electronically Signed: El Jasmine MD at 9:22 EDT Reading Location ID and State: [facility] / [place] Tel , Service support ,
== END | disposition home or self-care (01) ==
PROVIDERS: PCP Nurse Practitioner Primary Care; Referring Provider Internal Medicine Hematology & Oncology; Visit Provider Internal Medicine Hematology & Oncology
DX: C61 Malignant neoplasm of prostate (principal)
CPT/HCPCS: 71260; 74177; Q9967

== ENCOUNTER → 2022-08-05 | Outpatient (CLI) | payer MEDICARE, SELFPAY ==
--- NOTE | 2022-08-05 07:52 | CT_ITS ---
STUDY: CT CHEST, ABDOMEN T PELVIS WITH CONTRAST REASON FOR EXAM: Male, 67 years old. History of prostatic carcinoma with metastasis to the lungs, adrenal glands and skeletal system. RADIATION DOSAGE (If Supplied By Facility): CTDIvol = ( 16.92 ) mGy, DLP = ( 1700.76 ) mGycm TECHNIQUE: Transaxial imaging was performed following intravenous administration of IV 100mL Isovue-370. Multiplanar coronal and sagittal images were reformatted. Individualized dose optimization techniques were used for this CT. COMPARISON: Comparison is made with prior study dated 02/05/2022. FINDINGS: CHEST No pulmonary nodules are seen at this time. Mild scarring at the lung bases. There is no demonstrated pleural abnormality. There are calcifications of the coronary arteries. Tiny mediastinal lymph nodes are seen. Normal hilar regions. Normal unenhanced pulmonary arteries. Normal aorta arch and descending thoracic aorta. Stable sclerotic metastasis involving the thoracic vertebrae. Stable sclerotic metastasis involving the body of the sternum inferiorly. Diffuse fatty infiltration of the liver. 1.2 cm fat-containing nodule in the crux of the left adrenal gland. ABDOMEN There is decreased attenuation of the liver consistent with steatosis. The gallbladder is contracted. Normal spleen. Normal pancreas. 1.2 cm fat-containing nodule in the crux of the left adrenal gland. This is unchanged. Normal right kidney. Normal left kidney. Normal visualized stomach. Normal small intestine. There are multiple colonic diverticula consistent with diverticulosis. The appendix is visualized and appears normal. There is diffuse atherosclerotic calcification of the abdominal aorta and its major visceral branches, without a demonstrated aneurysm. Normal inferior vena cava. Normal retroperitoneum. Small bilateral inguinal hernias containing fat. Stable diffuse sclerotic metastasis of the lumbar vertebrae as well as the posterior medial aspect of the left iliac bone. Degenerative changes of the sacroiliac joints. PELVIS Mild degree of diffuse bladder wall thickening. There is diffuse atherosclerotic calcification of the pelvic arteries. CT/CT Chest, Abd, Pel w/Contrast IMPRESSION: Stable examination. Electronically Signed: Raj Keller MD at 11:22 EST ,
[2022-08-05 08:21] LABS: CREATININE FINGERSTICK < 0.9 mg/dL (0.70-1.30); EGFR FINGERSTICK > 60.0000 mL/min (>60)
== END | disposition home or self-care (01) ==
LOC: CT 07:51
PROVIDERS: PCP Nurse Practitioner Primary Care; Visit Provider Internal Medicine Hematology & Oncology
DX: C61 Malignant neoplasm of prostate (principal); C78.01 Secondary malignant neoplasm of right lung; C78.02 Secondary malignant neoplasm of left lung
CPT/HCPCS: 71260; 74177; Q9967

== ENCOUNTER → 2022-08-10 | Outpatient (CLI) | payer MEDICARE, SELFPAY ==
--- NOTE | 2022-08-10 07:36 | NM_ITS ---
CLINICAL: 67-year-old male with history of primary prostate carcinoma. WHOLE BODY 99m Tc MDP RADIONUCLIDE BONE SCINTIGRAPHY COMPARISON: Previous whole body bone scintigraphy study dated 02/02/2022 FINDINGS: Following the intravenous administration of 26.8 mCi of 99m Tc MDP, whole body bone images reveal: 1. Increased radiopharmaceutical concentration is newly apparent in the right posterior third and fifth ribs, persistently defined in the right anterior fifth rib, the left sacroiliac joint, the mid to lower thoracic spine, the distal left tibial diaphysis-metaphysis. 2. Enhanced uptake is noted in the acromioclavicular and sternoclavicular compartments of both shoulders, the third lumbar vertebra posteriorly on the left, the bilateral wrists. 3. The remaining skeletal structures are scintigraphically unremarkable with normal-appearing renal images and urinary bladder activity identified. Persistent uptake remains apparent in the presumably asymptomatic right-left hemiarthroplasties. NM/Bone Scan Whole Body IMPRESSION: 1. 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 2. Degenerative arthritis is demonstrated in the bilateral shoulders, the wrist articulations bilaterally, the third lumbar vertebra. 3. Overall compared to the previous whole body bone scintigraphy study dated 02/02/2022, newly identified increased uptake noted in the right posterior ribs and persistently visualized additional foci noted in the left sacroiliac joint, the mid to lower thoracic spine, the distal left tibia is most consistent with osteoblastic turnover attributed to skeletal metastatic disease. Electronically Signed: Navarro Spear, at 17:48 EST ,
== END | disposition home or self-care (01) ==
LOC: NM 07:35
PROVIDERS: PCP Nurse Practitioner Primary Care; Visit Provider Internal Medicine Hematology & Oncology
DX: C61 Malignant neoplasm of prostate (principal); C79.51 Secondary malignant neoplasm of bone
CPT/HCPCS: 78306; A9503

== ENCOUNTER → 2022-12-28 | Outpatient (CLI) | payer MEDICARE, SELFPAY ==
--- NOTE | 2022-12-28 06:37 | MRI_ITS ---
STUDY: MRI THORACIC SPINE WITHOUT CONTRAST REASON FOR EXAM: Male, 67 years old. Cancer with bone metastases. Increased thoracic and lumbar pain. TECHNIQUE: Standardized fat and water weighted pulse sequences were obtained in the sagittal and axial planes. COMPARISON: Whole body bone scan 08/10/2022. FINDINGS: Normal kyphosis of the thoracic spine. There is no substantial scoliosis. T1-2, T2-3, T3-4, T4-5, T5-6, T6-7, T7-8, T8-9, T9-10, T10-11, T11-12: No abnormal T1 hypointensity lesions to suspect bone metastases in the thoracic spine. Minimal anterior wedging of T12 superior endplate is presumably from remote injury. Normal remaining vertebral body heights. Normal thoracic disc space heights. No ventral extradural defect. Midline dorsal extradural defect at T8-T9 disc space level be due to calcification of the midline posterior ligamentum flavum.Normal central canal and bilateral intervertebral neural foramina. Normal visualized thoracic cord. Normal conus medullaris that terminates at the . The soft tissue structures are unremarkable. MRI/Spine Thoracic (Routine) IMPRESSION: 1. No suspicious or obvious bone metastases in the thoracic spine. Radionuclide whole body bone scan will be more helpful for further evaluation since there was previous positive bone metastases on the bone scan of 08/10/2022. 2. No thoracic extruded disc fragment or spinal stenosis. 3. Normal thoracic spinal cord. 4. Midline dorsal lateral extradural defect at T8-T9 disc space level is presumably due to calcified posterior ligamentum flavum. Electronically Signed: Abbe Rey MD at 10:12 EDT ,
--- NOTE | 2022-12-28 06:37 | MRI_ITS ---
STUDY: MRI CERVICAL SPINE WITHOUT CONTRAST REASON FOR EXAM: Male, 67 years old. Cancer with bone metastases. Increased pain. TECHNIQUE: Standardized fat and water weighted pulse sequences were obtained in the sagittal and axial planes. COMPARISON: Bone scan 08/10/2022. FINDINGS: Normal foramen magnum and brainstem-cervical cord junction. Normal craniovertebral junction. Normal anterior atlantoaxial articulation. Normal odontoid process. Normal cervical lordosis. Normal vertebral bodies and posterior osseous elements. C2-3: Normal endplates. Normal disc height, signal and morphology. Normal central canal and intervertebral neural foramina. C3-4: Normal endplates. Normal disc height, signal and morphology. Normal central canal and intervertebral neural foramina. C4-5: Hypertrophic anterior bone spurs. Normal endplates. Mild disc space height narrowing. No ventral extradural defect. Normal central canal and intervertebral neural foramina. C5-6: Prominent anterior bone spurs. Normal endplates. Moderate disc space height narrowing. No ventral extradural defect. Normal central canal and intervertebral neural foramina. C6-7: Hypertrophic anterior bone spurs. Normal endplates. Normal disc height and morphology. Normal central canal and intervertebral neural foramina. C7-T1: Normal endplates. Normal disc height, signal and morphology. Normal central canal and intervertebral neural foramina. T1-T2, T2-T3, T3-T4 and T4-T5: (Sagittal only). Normal endplates. Normal disc height and morphology. Normal central canal and intervertebral neural foramina. Normal cervical cord. Normal included upper thoracic spinal cord. Normal included portions of brainstem and cerebellum. Normal visualized soft tissue structures. MRI/Spine Cervical (Routine) IMPRESSION: 1. Prominent anterior diffuse idiopathic skeletal hyperostosis along the anterior C4, C5, C6 and C7 vertebral bodies. 2. No MRI evidence of cervical extruded disc fragment, spinal stenosis or cervical nerve root displacement. 3. No suspicious abnormal T1 hypointense lesions in the cervical spine to suspect bone metastases. Whole body bone scan will be more helpful for further evaluation due to known bone metastases on prior bone scan of 08/10/2022. 4. Normal cervical spinal cord. Electronically Signed: Abbe Rey MD at 10:41 EDT ,
--- NOTE | 2022-12-28 06:37 | MRI_ITS ---
STUDY: MRI LUMBAR SPINE WITHOUT CONTRAST REASON FOR EXAM: Male, 67 years old. Cancer with bone metastases. Increased thoracic and lumbar pain. TECHNIQUE: Standardized fat and water weighted pulse sequences were obtained in the sagittal and axial planes. COMPARISON: Whole body bone scan 08/10/2022. FINDINGS: T10-T11: (Sagittal only). Normal endplates. Normal disc height and morphology. Normal central canal and bilateral intervertebral neural foramina. T11-T12: (Sagittal only). Prominent Schmorl''s of the central T11 inferior endplate. Normal T12 superior endplate. Increased central disc space height due to the prominent Schmorl''s node. No ventral extradural defect. Normal central canal and bilateral intervertebral neural foramina. T12-L1: (Sagittal only). Normal endplates. Normal disc height, hydration and morphology. Normal central canal and bilateral intervertebral neural foramina. Normal lumbar lordosis. There is no substantial scoliosis. Normal conus medullaris that terminates at the L1-L2 disc space level. L1-2: Normal endplates. Moderate disc space height narrowing. Minimal degenerative retrolisthesis of L1 on L2. No significant facet arthropathy. Normal central canal and bilateral lateral recesses. Normal bilateral intervertebral neural foramina. Round T1 and T2 hypointensity in the L2 vertebral body may represent bone metastases. Smaller round T1 and T2 hyperintensity in the upper L1 vertebral body may also represent bone metastases. L2-3: Mild Modic type II degenerative vertebral marrow fat compression underneath the right side of the L2 inferior endplate. Normal L3 superior endplate. Mild disc space height narrowing. Minimal ventral extradural defect due to posterior bulging annulus. Prominent dorsal epidural lipomatosis. No significant facet arthropathy. Normal central canal and bilateral lateral recesses. Normal bilateral intervertebral neural foramina. L3-4: Normal endplates. Moderate disc space height narrowing. Mild degenerative retrolisthesis of L3 on L4. Mild asymmetric degenerative facet arthropathy. Prominent dorsal epidural lipomatosis. Moderate pronounced central canal stenosis with an AP canal diameter of 6 mm. Normal bilateral lateral recesses. Mild stenosis of the bilateral intervertebral neural foramina. L4-5: Tiny Schmorl''s node in the posterior L4 inferior endplate with reactive marrow fatty infiltration. Normal endplates. Moderate disc space height narrowing. Mild degenerative retrolisthesis of L4 on L5. Moderate bilateral degenerative facet arthropathy, left greater than right. Mild central canal stenosis with an AP canal diameter of 9 mm. Normal bilateral lateral recesses. Moderate stenosis of the left intervertebral neural foramen. Mild stenosis of the right intervertebral neural foramen. L5-S1: Normal endplates. Pronounced disc space height narrowing. Pronounced right degenerative facet arthropathy. Mild to moderate left degenerative facet arthropathy. Normal central canal and bilateral lateral recesses. Moderate stenosis of the left intervertebral neural foramen. Mild stenosis of the right intervertebral neural foramen. Normal visualized sacral ala. Abnormal T1 hypointensity on the iliac side of the posterior aspect of the left SI joint is worrisome for bone metastases. Normal visualized paraspinous soft tissue structures. MRI/Spine Lumbar (Routine) IMPRESSION: 1. 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 This corresponds to an area of increased radiotracer uptake on prior bone scan of 08/10/2022. 2. Round T1 and T2 hypointensity foci in the L1 and L2 vertebral bodies are worrisome for additional bone metastases. Follow-up radionuclide whole body bone scan will be helpful. 3. Moderately pronounced central canal stenosis at L3-L4 disc space level with an AP canal diameter of 6 mm and mild degenerative retrolisthesis of L3 on L4. 4. Mild central canal stenosis at L4-L5 disc space level with an AP canal diameter of 9 mm, moderate stenosis of the left intervertebral neural foramen and mild degenerative retrolisthesis of L4 on L5. 5. Pronounced right L5-S1 degenerative facet arthropathy and moderate stenosis of the left L5-S1 intervertebral neural foramen. 6. No MRI evidence of lumbar extruded disc fragment. Electronically Signed: Abbe Rey MD at 10:28 EDT ,
== END | disposition home or self-care (01) ==
LOC: MRI 06:25
PROVIDERS: PCP Nurse Practitioner Primary Care; Referring Provider Internal Medicine Hematology & Oncology; Visit Provider Internal Medicine Hematology & Oncology
DX: C79.51 Secondary malignant neoplasm of bone (principal); C80.1 Malignant (primary) neoplasm, unspecified
CPT/HCPCS: 72141; 72146; 72148

== ENCOUNTER → 2023-02-25 | Outpatient (CLI) | payer MEDICARE, SELFPAY ==
--- NOTE | 2023-02-25 07:30 | CT_ITS ---
STUDY: CT CHEST, ABDOMEN T PELVIS WITH CONTRAST REASON FOR EXAM: Male, 67 years old. F/U METS PROSTATE CANCER RADIATION DOSAGE (If Supplied By Facility): CTDIvol = ( 19.00 ) mGy, DLP = ( 1965.43 ) mGycm TECHNIQUE: Transaxial imaging was performed following intravenous administration of 100mL Isovue-300. Individualized dose optimization techniques were used for this CT. COMPARISON: 08/05/2022 FINDINGS: CHEST The lungs are normal. No pleural effusions. Normal heart and pericardium. Normal mediastinum. Normal hilar regions. Normal aorta arch and descending thoracic aorta. Stable sclerotic metastasis in the thoracic vertebral bodies and the distal sternum. ABDOMEN Normal liver. Gallbladder contracted. Normal spleen. Normal pancreas. Stable small fat-containing nodule left adrenal. Normal right kidney. Normal left kidney. Normal visualized stomach. Normal small intestine. Colonic diverticulosis without focal inflammatory wall changes. The appendix is visualized and appears normal. Normal abdominal aorta. Normal inferior vena cava. Normal retroperitoneum. Normal abdominal wall. Stable blastic metastases in the lumbar spine. PELVIS Stable mild bladder wall thickening. Small prostate bed. There is no pelvic fluid. There is no pelvic lymphadenopathy or mass lesion. Normal visualized pelvic arteries. Normal lower abdominal wall. Stable sacral and pelvic blastic osseous metastases. CT/CT Chest, Abd, Pel w/Contrast IMPRESSION: Stable examination with stable metastatic osseous disease. No acute findings in the chest, abdomen or pelvis. Electronically Signed: Shorty Gonzalez MD at 19:54 EDT ,
== END | disposition home or self-care (01) ==
PROVIDERS: PCP Nurse Practitioner Primary Care; Referring Provider Internal Medicine Hematology & Oncology; Visit Provider Internal Medicine Hematology & Oncology
DX: C79.82 Secondary malignant neoplasm of genital organs (principal)
CPT/HCPCS: 71260; 74177; Q9967

== ENCOUNTER → 2023-03-02 | Outpatient (CLI) | payer MEDICARE, SELFPAY ==
--- NOTE | 2023-03-02 07:17 | NM_ITS ---
CLINICAL: 67-year-old male with history of primary prostate carcinoma. WHOLE BODY 99m Tc MDP RADIONUCLIDE BONE SCINTIGRAPHY COMPARISON: Previous whole body bone scintigraphy study dated 08/10/22 FINDINGS: Following the intravenous administration of 26.0 mCi of 99m Tc MDP, whole body bone images reveal: 1. Increased radiopharmaceutical concentration is redemonstrated in the right posterior third, fifth and seventh ribs, the right anterior fifth rib, the left sacroiliac joint, the mid to lower thoracic spine, the distal left tibial-fibular diaphysis-metaphysis. A decrease in intensity of uptake is noted in the right posterior fifth rib. 2. Facilitated radiotracer is defined in the acromioclavicular and sternoclavicular compartments of both shoulders, the third lumbar vertebra posteriorly on the left, the bilateral wrist articulations. 3. The remaining skeletal structures are scintigraphically unremarkable with normal-appearing renal images and urinary bladder activity identified. Persistent uptake remains apparent in the presumably asymptomatic right-left hemiarthroplasties, unchanged. NM/Bone Scan Whole Body IMPRESSION: 1. 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 If not previously obtained, plain film radiography correlation may be of benefit. 2. Degenerative arthritis is redefined in the bilateral shoulders, the wrist articulations bilaterally, the third lumbar vertebra. 3. Overall compared to the previous whole body bone scintigraphy study dated 08/10/22, there is minimal interval change. Electronically Signed: Navarro Spear, at 9:29 EDT ,
== END | disposition home or self-care (01) ==
PROVIDERS: PCP Nurse Practitioner Primary Care; Referring Provider Internal Medicine Hematology & Oncology; Visit Provider Internal Medicine Hematology & Oncology
DX: C61 Malignant neoplasm of prostate (principal)
CPT/HCPCS: 78306; A9503

== ENCOUNTER → 2023-07-16 | Outpatient (CLI) | payer MEDICARE, SELFPAY ==
--- NOTE | 2023-07-16 15:20 | MRI_ITS ---
STUDY: MRI THORACIC SPINE WITH AND WITHOUT CONTRAST REASON FOR EXAM: Male, 68 years old. prostate ca met to bone; radiating RLE pain TECHNIQUE: IV CLARISCAN 20ML was administered for the contrast portion of the examination. COMPARISON: None. FINDINGS: Normal kyphosis of the thoracic spine. There is no substantial scoliosis. There are low signal lesions seen on the T1, T2 and STIR imaging sequences within the T11 vertebral body, T10, T10 7, T6 and T5 vertebral bodies.No significant enhancement which may be consistent with sclerotic metastases from known prostate neoplasm.. There is no definitive evidence for epidural extension of tumor. There is prominent Schmorl''s node deformity of the inferior endplate of T11. . Disc space heights well-maintained although there is mild multilevel disc degeneration. There is no significant disc protrusion spinal stenosis or cord compression Normal visualized thoracic cord. Normal conus medullaris that terminates at T12-L1 The soft tissue structures are unremarkable. There is no enhancing abnormality. MRI/Spine Thoracic W/WO Contrast IMPRESSION: Findings consistent with multiple bone metastases. No evidence for tumor within the epidural space, disc protrusion, spinal stenosis or cord compression. Electronically Signed: Kash Jacques MD at 17:50 EST Reading Location ID and State: [facility] / [place] Tel , Service support ,
--- NOTE | 2023-07-16 15:21 | MRI_ITS ---
STUDY: MRI LUMBAR SPINE WITH AND WITHOUT CONTRAST REASON FOR EXAM: Male, 68 years old. prostate ca met to bone; radiating RLE pain TECHNIQUE: Standardized fat and water weighted pulse sequences were obtained in the sagittal and axial planes. IV yes yes was administered for the contrast portion of the examination. COMPARISON: December 28, 2022 FINDINGS: No evidence for acute fracture or subluxation. There are low signal changes on all pulse weighted imaging sequences within the L1, L2 and S1 vertebral bodies consistent with sclerotic metastasis secondary to known prostate malignancy. T12-L1: Normal endplates. Normal disc height, hydration and morphology. Normal bilateral facet joints. Normal central canal and bilateral lateral recesses. Normal bilateral intervertebral neural foramina. Normal lumbar lordosis. There is no substantial scoliosis. Normal conus medullaris that terminates at L1 L1-2: Normal endplates. Narrowed disc space with desiccation of the disc and minimal annular bulge.. Normal bilateral facet joints. Normal central canal and bilateral lateral recesses. Normal bilateral intervertebral neural foramina. L2-3: Normal endplates. Normal disc height, desiccation and minimal annular bulge.. Normal bilateral facet joints. Normal central canal and bilateral lateral recesses. Normal bilateral intervertebral neural foramina. L3-4: Normal endplates. Normal disc height, minimal annular bulge with right foraminal disc protrusion. Normal bilateral facet joints. Normal central canal and bilateral lateral recesses. Mild left neural foraminal stenosis and moderate narrowing on the right. L4-5: Grade 1 retrolisthesis Normal endplates. Normal disc height, desiccation mild bulging disc osteophyte complex.. Facet arthropathy and thickening of ligamenta flava more pronounced on the left.. Mild narrowing of the central canal. Moderate narrowing of the left lateral recess and severe bilateral neural foraminal stenosis exaggerated by shortened pedicles L5-S1: Normal endplates. Normal disc height, hydration and right posterolateral/foraminal disc/osteophyte protrusion. Facet arthropathy and thickening of ligamenta flava.. Normal central canal and bilateral lateral recesses. Mild left neural foraminal stenosis and more severe narrowing on the right... Normal visualized sacral ala. No enhancing lesions following contrast administration Normal visualized paraspinous soft tissue structures. The disc disease and spinal stenosis at L4-5 has progressed since prior exam. No other significant interval change. MRI/Spine Lumbar W/WO Contrast IMPRESSION: Bone metastasis involving L1, L2 and S1 vertebral bodies without epidural extension of tumor into the spinal canal. Multilevel spinal stenosis secondary to disc disease and bony hypertrophy most severe at L4-5 exaggerated by shortened pedicles at L3-4 and L5-S1 on the right. Findings as above Electronically Signed: Kash Jacques MD at 18:02 EST ,
--- OUTSIDE RECORDS SUMMARY | 2023-07-16 16:25 | XMS RPT_ITS | CCD ---
Author Name Unknown Address [address] [place] [address] Organization [facility] Care Team Providers Care Spragger Name Role Phone CHET RACHEL-MARILYN FLOR Primary Care Physicia n Problems Problem Classification Problem Date Documented Da te Episodic/Chronic Alcohol-related disorders (2 sources) Alcohol abuse 08-07-2019 Chronic Disorders of lipid metabolism (2 sources) Hyperlipidemia 08-07-2019 Chronic Genitourinary symptoms and ill-defined conditions (2 sources) Nocturia 07-16-2021 Episodic Other gastrointestinal disorders (2 sources) Alteration in bowel elimination 07-16-2021 Episodic Other screening for suspected conditions (not mental disorders or infectious disease) (2 sources) Raised prostate specific antigen 07-16-2021 Episodic Results Test Name Value Interpretation Reference Range Facil ity Vital Signs Date Time Vital Sign Value Performing Clinician Júnior tyler 07-28-2021 10:09-0500 Diastolic Blood Pressure NBP [address] HERIBERTO CARABALLO MD [facility] 07-28-2021 10:09-0500 Heart rate 89 /min DR HERIBERTO CARABALLO MD [facility] 07-28-2021 10:09-0500 Respiratory rate 15 /min DR HERIBERTO CARABALLO MD [facility] 07-28-2021 10:09-0500 Systolic Blood Pressure NBP [address] HERIBERTO CARABALLO MD [facility] 07-28-2021 09:59-0500 Diastolic Blood Pressure NBP [address] HERIBERTO CARABALLO MD [facility] 07-28-2021 09:59-0500 Heart rate 87 /min DR HERIBERTO CARABALLO MD [facility] 07-28-2021 09:59-0500 Respiratory rate 17 /min DR HERIBERTO CARABALLO MD [facility] 07-28-2021 09:59-0500 Systolic Blood Pressure NBP [address] HERIBERTO CARABALLO MD [facility] 07-28-2021 09:53-0500 Diastolic Blood Pressure NBP [address] HERIBERTO CARABALLO MD [facility] 07-28-2021 09:53-0500 Heart rate 85 /min DR HERIBERTO CARABALLO MD [facility] 07-28-2021 09:53-0500 Respiratory rate 23 /min DR HERIBERTO CARABALLO MD [facility] 07-28-2021 09:53-0500 Systolic Blood Pressure NBP [address] HERIBERTO CARABALLO MD [facility] 07-28-2021 08:16-0500 Body height 177.[address] HERIBERTO CARABALLO MD [facility] 07-28-2021 08:16-0500 Body temperature 98.6 [degF] DR HERIBERTO CARABALLO MD [facility] 07-28-2021 08:16-0500 Body weight 95.[address] HERIBERTO CARABALLO MD [facility] 07-28-2021 08:16-0500 diastolic 93 mm[Hg] DR HERIBERTO CARABALLO MD [facility] 07-28-2021 08:16-0500 Heart rate 90 /min DR HERIBERTO CARABALLO MD [facility] 07-28-2021 08:16-0500 systolic 138 mm[Hg] DR HERIBERTO CARABALLO MD [facility] Encounters Encounter Date Encounter Type Care Provider Facility Start: 07-28-2021 End: 07-28-[address] HERIBERTO CARABALLO MD [facility] Start: 07-16-2021 End: 07-16-2021 Patient encounter procedure MARILYN ROSENBERG CLINICAL SPECIALTY REP-MAINTENANCE WELDER [facility] Procedures Date Procedure Procedure Detail Performing Clinician Start: 02-08-2014 Prostate biopsy cortney le (specimen) MARILYN ROSENBERG CLINICAL SPECIALTY REP-MAINTENANCE WELDER Start: 08-08-2009 Lipoma (disorder) DEBBIE ROSENBERG CLINICAL SPECIALTY REP-MAINTENANCE WELDER Social History Date Type Detail Facility Start: 08-07-2019 Ex-smoker (finding) [facility]igned [facility] Discharge instructions 07-28-2021 Note Date & Type Note Facility 07-28-2021 Hospital Discharg e instructions Patient Education 07/28/2021 10:13:45 Moderate Conscious Sedation, Adult, Care After Moderate Conscious Sedation, Adult, Care After These instructions provide you with information about caring for yourself after your procedure. Your health care provider may also give you more specific instructions. Your treatment has been planned according to current medical practices, but problems sometimes occur. Call your health care provider if you have any problems or questions after your procedure. What can I expect after the procedure? After your procedure, it is common: To feel sleepy for several hours. To feel clumsy and have poor balance for several hours. To have poor judgment for several hours. To vomit if you eat too soon. Follow these instructions at home: For at least 24 hours after the procedure: Do not: ?Participate in activities where you could fall or become injured. ?Drive. ?Use heavy machinery. ?Drink alcohol. ?Take sleeping pills or medicines that cause drowsiness. ?Make important decisions or sign legal documents. ?Take care of children on your own. Rest. Eating and drinking Follow the diet recommended by your health care provider. If you vomit: ?Drink water, juice, or soup when you can drink without vomiting. ?Make sure you have little or no nausea before eating solid foods. General instructions Have a responsible adult stay with you until you are awake and alert. Take ejww-hio-itujkyy and prescription medicines only as told by your health care provider. If you smoke, do not smoke without supervision. Keep all follow-up visits as told by your health care provider. This is important. Contact a health care provider if: You keep feeling nauseous or you keep vomiting. You feel light-headed. You develop a rash. You have a fever. Get help right away if: You have trouble breathing. This information is not intended to replace advice given to you by your health care provider. Make sure you discuss any questions you have with your health care provider. Document Released: 04/11/2014 Document Revised: 06/03/2018 Document Reviewed: 10/10/2016 [employer] Patient Education 2020 [employer] 07/28/2021 10:13:38 Colonoscopy, Adult, Care After, Xauu-qb-Siog Colonoscopy, Adult, Care After This sheet gives you information about how to care for yourself after your procedure. Your doctor may also give you more specific instructions. If you have problems or questions, call your doctor. What can I expect after the procedure? After the procedure, it is common to have: A small amount of blood in your poop for 24 hours. Some gas. Mild cramping or bloating in your belly. Follow these instructions at home: General instructions For the first 24 hours after the procedure: ?Do not drive or use machinery. ?Do not sign important documents. ?Do not drink alcohol. ?Do your daily activities more slowly than normal. ?Eat foods that are soft and easy to digest. Take vetm-jfr-dwesqyh or prescription medicines only as told by your doctor. To help cramping and bloating: Try walking around. Put heat on your belly (abdomen) as told by your doctor. Use a heat source that your doctor recommends, such as a moist heat pack or a heating pad. ?Put a towel between your skin and the heat source. ?Leave the heat on for 20 30 minutes. ?Remove the heat if your skin turns bright red. This is especially important if you cannot feel pain, heat, or cold. You can get burned. Eating and drinking Drink enough fluid to keep your pee (urine) clear or pale yellow. Return to your normal diet as told by your doctor. Avoid heavy or fried foods that are hard to digest. Avoid drinking alcohol for as long as told by your doctor. Contact a doctor if: You have blood in your poop (stool) 2 3 days after the procedure. Get help right away if: You have more than a small amount of blood in your poop. You see large clumps of tissue (blood clots) in your poop. Your belly is swollen. You feel sick to your stomach (nauseous). You throw up (vomit). You have a fever. You have belly pain that gets worse, and medicine does not help your pain. Summary After the procedure, it is common to have a small amount of blood in your poop. You may also have mild cramping and bloating in your belly. For the first 24 hours after the procedure, do not drive or use machinery, do not sign important documents, and do not drink alcohol. Get help right away if you have a lot of blood in your poop, feel sick to your stomach, have a fever, or have more belly pain. This information is not intended to replace advice given to you by your health care provider. Make sure you discuss any questions you have with your health care provider. Document Released: 07/24/2011 Document Revised: 04/21/2018 Document Reviewed: 03/15/2017 [employer] Patient Education 2020 [employer]. 07/28/2021 10:12:49 Colon Polyps Colon Polyps Polyps are tissue growths inside the body. Polyps can grow in many places, including the large intestine (colon). A polyp may be a round bump or a mushroom-shaped growth. You could have one polyp or several. Most colon polyps are noncancerous (benign). However, some colon polyps can become cancerous over time. Finding and removing the polyps early can help prevent this. What are the causes? The exact cause of colon polyps is not known. What increases the risk? You are more likely to develop this condition if you: Have a family history of colon cancer or colon polyps. Are older than 50 or older than 45 if you are . Have inflammatory bowel disease, such as ulcerative colitis or Crohn's disease. Have certain hereditary conditions, such as: ?Familial adenomatous polyposis. ?Manning syndrome. ?Turcot syndrome. ?Peutz Jeghers syndrome. Are overweight. Smoke cigarettes. Do not get enough exercise. Drink too much alcohol. Eat a diet that is high in fat and red meat and low in fiber. Had childhood cancer that was treated with abdominal radiation. What are the signs or symptoms? Most polyps do not cause symptoms. If you have symptoms, they may include: Blood coming from your rectum when having a bowel movement. Blood in your stool. The stool may look dark red or black. Abdominal pain. A change in bowel habits, such as constipation or diarrhea. How is this diagnosed? This condition is diagnosed with a colonoscopy. This is a procedure in which a lighted, flexible scope is inserted into the anus and then passed into the colon to examine the area. Polyps are sometimes found when a colonoscopy is done as part of routine cancer screening tests. How is this treated? Treatment for this condition involves removing any polyps that are found. Most polyps can be removed during a colonoscopy. Those polyps will then be tested for cancer. Additional treatment may be needed depending on the results of testing. Follow these instructions at home: Lifestyle Maintain a healthy weight, or lose weight if recommended by your health care provider. Exercise every day or as told by your health care provider. Do not use any products that contain nicotine or tobacco, such as cigarettes and e-cigarettes. If you need help quitting, ask your health care provider. If you drink alcohol, limit how much you have: ?0 1 drink a day for women. ? 0 2 drinks a day for men. Be aware of how much alcohol is in your drink. In the [place] one drink equals one 12 oz bottle of beer (355 mL), one 5 oz glass of wine (148 mL), or one 1 oz shot of hard liquor (44 mL). Eating and drinking Eat foods that are high in fiber, such as fruits, vegetables, and whole grains. Eat foods that are high in calcium and vitamin D, such as milk, cheese, yogurt, eggs, liver, fish, and broccoli. Limit foods that are high in fat, such as fried foods and desserts. Limit the amount of red meat and processed meat you eat, such as hot dogs, sausage, urrutia, and lunch meats. General instructions Keep all follow-up visits as told by your health care provider. This is important. ?This includes having regularly scheduled colonoscopies. ?Talk to your health care provider about when you need a colonoscopy. Contact a health care provider if: You have new or worsening bleeding during a bowel movement. You have new or increased blood in your stool. You have a change in bowel habits. You lose weight for no known reason. Summary Polyps are tissue growths inside the body. Polyps can grow in many places, including the colon. Most colon polyps are noncancerous (benign), but some can become cancerous over time. This condition is diagnosed with a colonoscopy. Treatment for this condition involves removing any polyps that are found. Most polyps can be removed during a colonoscopy. This information is not intended to replace advice given to you by your health care provider. Make sure you discuss any questions you have with your health care provider. Document Released: 03/17/2005 Document Revised: 10/06/2018 Document Reviewed: 10/06/2018 [employer] Patient Education 2020 [employer]. Follow Up Care 07/07/2021 14:17:36 With:HERIBERTO CARABALLO MD Address: [phone] When: Unknown Comments:Follow up as needed. [facility] Evaluation + Plan note Note Date & Type Note Facility Evaluation + Plan note Future Appointments [facility] Hospital course Narrative Note Date & Type Note Facility Hospital course Narrative No data available for this section [facility] Hospital Discharge instructions Note Date & Type Note Facility Hospital Discharge instructions No data available for this section [facility] Summary Purpose Family History No Family History Records Found Advance Directives No Advanced Directives Records Found Additional Source Comments (unrecognized sect ion and content) No Status Records Found INFORMATION SOURCE (unrecogn ized section and content) FOR RECORDS PERTAINING TO PATIENTS WHO ARE OR HAVE BEEN ENROLLED IN A CHEMICAL DEPENDENCY/SUBSTANCEABUSE PROGRAM, SOME INFORMATION MAY BE OMITTED. This clinical summary was aggregated from multiple sources. Caution should be exercised in using it in the provision of clinical care. This summary normalizes information from multiple sources, and as a consequence, information in this document may materially change the coding, format and clinical context of patient data. In addition, data may be omitted in some cases. CLINICAL DECISIONS SHOULD BE BASED ON THE PRIMARY CLINICAL RECORDS. [facility] [employer] [facility]. provides no warranty or guarantee of the accuracy or completeness of information in this document.
== END | disposition home or self-care (01) ==
LOC: MRI 15:19
PROVIDERS: PCP Nurse Practitioner Primary Care; Visit Provider Nurse Practitioner Family
DX: C61 Malignant neoplasm of prostate (principal); C79.51 Secondary malignant neoplasm of bone
CPT/HCPCS: 72157; 72158; A9575

== ENCOUNTER → 2023-08-03 | Outpatient (CLI) | payer MEDICARE, SELFPAY ==
--- NOTE | 2023-08-03 | BONBX_PTH ---
PATHOLOGY RESULTS PATIENT: MARIAH SUAZO LOC: [facility] U#:[id number] AGE/SX: 68/M ROOM: RE08/03/[address]: Dr. Radha Coffey MD : 1955 BED: DIS: 08/03/2023 SPEC #: [id number] RECD: 08/03/23 18:19 STATUS: JIN RERaj #: [id number] RAYA: 08/03/23 00:[address]: Radha Coffey DEPT: SURGICAL PATHOLOGY RECD BY: Madeleine Palacio ENTERED: 08/04/23 08:43 SP TYPE: Bone OTHR DR: Elana Cobb, GAME ADVISOR-C Tissues: Vertebra, NOS Vertebra, NOS Procedures: Decalcification bone/plaque Surgery Specimen Level V HEADER OPERATION: Kyphoplasty PRE-OP DIAGNOSIS: Metastatic fracture L1, L2 TISSUE SUBMITTED: A - L1 metastatic fracture, B - L2 metastatic fracture MICROSCOPIC DIAGNOSIS A. Lumbar, L1, fracture site, bone biopsy: Trilineage hematopoiesis. No evidence of malignancy. B. Lumbar, L2, bone biopsy: Acute inflammation and fibrinoid material. Scattered hematopoietic elements. No evidence of malignancy. AM:christa 08/05/2023 MICROSCOPIC DESCRIPTION Slides are reviewed. GROSS DESCRIPTION A - Received in fixative is one container labeled with the patient's name and designated L1. The specimen consists of multiple irregular fragments of blood clot mixed with fragments of bone that in aggregate measure 3.0 x 2.0 x 0.1 cm. The specimen is totally submitted in one cassette after decalcification. B - Received in fixative is one container labeled with the patient's name and designated L2. The specimen consists of multiple irregular fragments of blood clot mixed with fragments of bone that in aggregate measure 1.0 x 1.0 x 0.2 cm. The specimen is totally submitted in one cassette after decalcification. / ANGELA:christa 08/04/2023 TC:2 CPT: 69871 x2, 28058 x2
--- OUTSIDE RECORDS SUMMARY | 2023-08-03 18:45 | XMS RPT_ITS | CCD ---
Author Name Unknown Address [address] [place] [address] Organization [facility] Care Team Providers Care Java Development Team Lead Name Role Phone CHET RACHEL-MARILYN FLOR Primary [...] NBP [address] HERIBERTO CARABALLO MD [facility] 07-28-2021 10:09-0500 Heart rate 89 /min DR HERIBERTO CARABALLO MD [facility] 07-28-2021 10:09-0500 Respiratory rate 15 /min DR HERIBERTO CARABALLO MD [facility] 07-28-2021 10:09-0500 Systolic Blood Pressure NBP [address] HERIBERTO CARABALLO MD [facility] 07-28-2021 09:59-0500 Diastolic Blood Pressure NBP [address] HERIBERTO CARABALLO MD [facility] 07-28-2021 09:59-0500 Heart rate 87 /min DR HERIBERTO CARABALLO MD [facility] 07-28-2021 09:59-0500 Respiratory rate 17 /min DR HERIBERTO CARABALLO MD [facility] 07-28-2021 09:59-0500 Systolic Blood Pressure NBP [address] HERIBERTO CARABALLO MD [facility] 07-28-2021 09:53-0500 Diastolic Blood Pressure NBP [address] HERIBERTO CARABALLO MD [facility] 07-28-2021 09:53-0500 Heart rate 85 /min DR HERIBERTO CARABALLO MD [facility] 07-28-2021 09:53-0500 Respiratory rate 23 /min DR HERIBERTO CARABALLO MD [facility] 07-28-2021 09:53-0500 Systolic Blood Pressure NBP [address] HERIBERTO CARABALLO MD [facility] 07-28-2021 08:16-0500 Body height 177.[address] HERIBERTO CARABALLO MD [facility] 07-28-2021 08:16-0500 Body temperature 98.6 [degF] DR HERIBERTO CARABALLO MD [facility] 07-28-2021 08:16-0500 Body weight 95.[address] HERIBERTO CARABALLO MD [facility] 07-28-2021 08:16-0500 diastolic 93 mm[Hg] DR HERIBERTO CARABALLO MD [facility] 07-28-2021 08:16-0500 Heart rate 90 /min DR HERIBERTO CARABALLO MD [facility] 07-28-2021 08:16-0500 systolic 138 mm[Hg] DR HERIBERTO CARABALLO MD [facility] Encounters Encounter Date Encounter Type Care Provider Facility Start: 07-28-2021 End: 07-28-[address] HERIBERTO CARABALLO MD [facility] Start: 07-16-2021 End: 07-16-2021 Patient encounter procedure MARILYN ROSENBERG CHAIR INSTALLER-MANAGER CUSTOMER [facility] Procedures Date Procedure Procedure Detail Performing Clinician Start: 02-08-2014 Prostate biopsy cortney le (specimen) MARILYN ROSENBERG CHAIR INSTALLER-MANAGER CUSTOMER Start: 08-08-2009 Lipoma (disorder) DEBBIE ROSENBERG CHAIR INSTALLER-MANAGER CUSTOMER Social History Date Type Detail Facility Start: 08-07-2019 Ex-smoker (finding) [facility] Sex Assigned At [facility] Discharge instructions 07-28-2021 [...] until you are awake and alert. Take hxbq-ylm-srsptgr and prescription medicines only as told by [...] 04/11/2014 Document Revised: 06/03/2018 Document Reviewed: 10/10/2016 [employer] Patient Education 2020 [employer] 07/28/2021 10:13:38 Colonoscopy, Adult, Care After, Xmlo-vt-Txql Colonoscopy, Adult, Care After This sheet gives [...] are soft and easy to digest. Take fuog-ayw-cagthtf or prescription medicines only as told by [...] 07/24/2011 Document Revised: 04/21/2018 Document Reviewed: 03/15/2017 [employer] Patient Education 2020 [employer]. 07/28/2021 10:12:49 Colon Polyps Colon Polyps Polyps [...] 03/17/2005 Document Revised: 10/06/2018 Document Reviewed: 10/06/2018 [employer] Patient Education 2020 [employer]. Follow Up Care 07/07/2021 14:17:36 With:HERIBERTO CARABALLO MD Address: [phone] When: Unknown Comments:Follow up as needed. [facility] Evaluation + Plan note Note Date & Type Note Facility Evaluation + Plan note Future Appointments [facility] Hospital course Narrative Note Date & Type Note Facility Hospital course Narrative No data available for this section [facility] Hospital Discharge instructions Note Date & Type Note Facility Hospital Discharge instructions No data available for this section [facility] Summary Purpose Family History No Family History [...] BE BASED ON THE PRIMARY CLINICAL RECORDS. [facility] [employer] [facility]. provides no warranty or guarantee of the accuracy or completeness of information in this document.
== END | disposition home or self-care (01) ==
PROVIDERS: PCP Nurse Practitioner Primary Care; Visit Provider Anesthesiology Pain Medicine
DX: M84.58XA Pathological fracture in neoplastic disease, other specified site, initial encounter for fracture (principal); M46.26 Osteomyelitis of vertebra, lumbar region
CPT/HCPCS: 88307; 88311

== ENCOUNTER → 2023-08-16 | Outpatient (CLI) | payer MEDICARE, SELFPAY ==
--- NOTE | 2023-08-16 07:40 | CT_ITS ---
STUDY: CT CHEST, ABDOMEN T PELVIS WITH CONTRAST REASON FOR EXAM: Male, 68 years old. Met prostate ca on treatment RADIATION DOSAGE (If Supplied By Facility): CTDIvol = ( 19.24 ) mGy, DLP = ( 1909.11 ) mGycm TECHNIQUE: Transaxial imaging was performed following intravenous administration of IV 100mL Isovue-300. Multiplanar coronal and sagittal images were reformatted. Individualized dose optimization techniques were used for this CT. COMPARISON: Comparison is made with prior study dated February 25, 2023. FINDINGS: CHEST The lungs are normal. There is no demonstrated pleural abnormality. There are calcifications of the coronary arteries. Normal mediastinum. Normal hilar regions. Normal unenhanced pulmonary arteries. Normal aorta arch and descending thoracic aorta. There are multi-level degenerative changes of the thoracic spine. There is evidence of a metastasis involving the T3 vertebrae as well as the lower thoracic vertebrae. Osteosclerosis is also seen involving the body of the sternum. Focal metastasis in the anterior lower right rib. ABDOMEN There is decreased attenuation of the liver consistent with steatosis. The gallbladder is contracted. Questionable tiny gallstones within the gallbladder lumen. Normal spleen. Normal pancreas. Stable 1.5 cm fat-containing nodule in the crux of the left adrenal gland. Normal right kidney. Normal left kidney. There is a small hiatal hernia. Normal small intestine. There are multiple colonic diverticula consistent with diverticulosis. The appendix is visualized and appears normal. There is diffuse atherosclerotic calcification of the abdominal aorta, without a demonstrated aneurysm. Stent is seen at the origin of the left renal artery. Normal inferior vena cava. Normal retroperitoneum. There is a small umbilical hernia containing fat. Sclerotic metastases are seen in the first segment of the sacrum as well as at the T11 and T12 vertebrae. There is evidence of prior vertebroplasty of the L1-L2 vertebrae. PELVIS There is a mild degree of diffuse bladder wall thickening. There is no pelvic fluid. There is no pelvic lymphadenopathy or mass lesion. Normal visualized pelvic arteries. Small bilateral inguinal hernias containing fat. CT/CT Chest, Abd, Pel w/Contrast IMPRESSION: Stable examination with evidence of skeletal metastasis as described. Electronically Signed: Raj Keller MD at 12:11 EST ,
--- OUTSIDE RECORDS SUMMARY | 2023-08-16 07:48 | XMS RPT_ITS | CCD ---
Author Name Unknown Address [email or web address] [place] [address] Organization [facility] Care Team Providers Care Clinical Radiologist Name Role Phone CHET RACHEL-MARILYN FLOR Primary [...] NBP [address] HERIBERTO CARABALLO MD [facility] 07-28-2021 10:09-0500 Heart rate 89 /min DR HERIBERTO CARABALLO MD [facility] 07-28-2021 10:09-0500 Respiratory rate 15 /min DR HERIBERTO CARABALLO MD [facility] 07-28-2021 10:09-0500 Systolic Blood Pressure NBP [address] HERIBERTO CARABALLO MD [facility] 07-28-2021 09:59-0500 Diastolic Blood Pressure NBP [address] HERIBERTO CARABALLO MD [facility] 07-28-2021 09:59-0500 Heart rate 87 /min DR HERIBERTO CARABALLO MD [facility] 07-28-2021 09:59-0500 Respiratory rate 17 /min DR HERIBERTO CARABALLO MD [facility] 07-28-2021 09:59-0500 Systolic Blood Pressure NBP [address] HERIBERTO CARABALLO MD [facility] 07-28-2021 09:53-0500 Diastolic Blood Pressure NBP [address] HERIBERTO CARABALLO MD [facility] 07-28-2021 09:53-0500 Heart rate 85 /min DR HERIBERTO CARABALLO MD [facility] 07-28-2021 09:53-0500 Respiratory rate 23 /min DR HERIBERTO CARABALLO MD [facility] 07-28-2021 09:53-0500 Systolic Blood Pressure NBP [address] HERIBERTO CARABALLO MD [facility] 07-28-2021 08:16-0500 Body height 177.[address] HERIBERTO CARABALLO MD [facility] 07-28-2021 08:16-0500 Body temperature 98.6 [degF] DR HERIBERTO CARABALLO MD [facility] 07-28-2021 08:16-0500 Body weight 95.[address] HERIBERTO CARABALLO MD [facility] 07-28-2021 08:16-0500 diastolic 93 mm[Hg] DR HERIBERTO CARABALLO MD [facility] 07-28-2021 08:16-0500 Heart rate 90 /min DR HERIBERTO CARABALLO MD [facility] 07-28-2021 08:16-0500 systolic 138 mm[Hg] DR HERIBERTO CARABALLO MD [facility] Encounters Encounter Date Encounter Type Care Provider Facility Start: 07-28-2021 End: 07-28-[address] HERIBERTO CARABALLO MD [facility] Start: 07-16-2021 End: 07-16-2021 Patient encounter procedure MARILYN ROSENBERG PISTON MAKER-DOORKEEPER [facility] Procedures Date Procedure Procedure Detail Performing Clinician Start: 02-08-2014 Prostate biopsy cortney le (specimen) MARILYN ROSENBERG PISTON MAKER-DOORKEEPER Start: 08-08-2009 Lipoma (disorder) DEBBIE ROSENBERG PISTON MAKER-DOORKEEPER Social History Date Type Detail Facility Start: 08-07-2019 Ex-smoker (finding) [facility]igned [facility] Discharge instructions [...] until you are awake and alert. Take fnzr-asy-owkjkty and prescription medicines only as told by [...] 04/11/2014 Document Revised: 06/03/2018 Document Reviewed: 10/10/2016 [employer] Patient Education 2020 [employer] 07/28/2021 10:13:38 Colonoscopy, Adult, Care After, Zzms-[id number] Colonoscopy, Adult, Care After This sheet gives [...] are soft and easy to digest. Take wkno-qyl-ynqekag or prescription medicines only as told by [...] 07/24/2011 Document Revised: 04/21/2018 Document Reviewed: 03/15/2017 [employer] Patient Education 2020 [employer]. 07/28/2021 10:12:49 Colon Polyps Colon Polyps Polyps [...] 03/17/2005 Document Revised: 10/06/2018 Document Reviewed: 10/06/2018 [employer] Patient Education 2020 [employer]. Follow Up Care 07/07/2021 14:17:36 With:HERIBERTO CARABALLO MD Address: [phone] When: Unknown Comments:Follow up as needed. [facility] Evaluation + Plan note Note Date & Type Note Facility Evaluation + Plan note Future Appointments [facility] Hospital course Narrative Note Date & Type Note Facility Hospital course Narrative No data available for this section [facility] Hospital Discharge instructions Note Date & Type Note Facility Hospital Discharge instructions No data available for this section [facility] Summary Purpose Family History No Family History [...] BE BASED ON THE PRIMARY CLINICAL RECORDS. [facility] [employer] [facility]. provides no warranty or guarantee of the accuracy or completeness of information in this document.
[2023-08-16 08:07] LABS: CREATININE FINGERSTICK < 1.0 mg/dL (0.70-1.30); EGFR FINGERSTICK > 60.0000 mL/min (>60)
== END | disposition home or self-care (01) ==
PROVIDERS: PCP Nurse Practitioner Primary Care; Referring Provider Nurse Practitioner Family; Visit Provider Nurse Practitioner Family
DX: Z01.812 Encounter for preprocedural laboratory examination (principal); C61 Malignant neoplasm of prostate
CPT/HCPCS: 71260; 74177; Q9967; A4216

== ENCOUNTER → 2023-08-19 | Outpatient (CLI) | payer MEDICARE, SELFPAY ==
--- OUTSIDE RECORDS SUMMARY | 2023-08-19 07:40 | XMS RPT_ITS | CCD ---
Author Name Unknown Address [address] [place] [address] Organization [facility] Care Team Providers Care Dry Roller Name Role Phone CHET CHARLESN-MARILYN FLOR Primary Care Physicia n Problems Problem [...] NBP [address] HERIBERTO CARABALLO MD [facility] 07-28-2021 10:09-0500 Heart rate 89 /min DR HERIBERTO CARABALLO MD [facility] 07-28-2021 10:09-0500 Respiratory rate 15 /min DR HERIBERTO CARABALLO MD [facility] 07-28-2021 10:09-0500 Systolic Blood Pressure NBP [address] HERIBERTO CARABALLO MD [facility] 07-28-2021 09:59-0500 Diastolic Blood Pressure NBP [address] HERIBERTO CARABALLO MD [facility] 07-28-2021 09:59-0500 Heart rate 87 /min DR HERIBERTO CARABALLO MD [facility] 07-28-2021 09:59-0500 Respiratory rate 17 /min DR HERIBERTO CARABALLO MD [facility] 07-28-2021 09:59-0500 Systolic Blood Pressure NBP [address] HERIBERTO CARABALLO MD [facility] 07-28-2021 09:53-0500 Diastolic Blood Pressure NBP [address] HERIBERTO CARABALLO MD [facility] 07-28-2021 09:53-0500 Heart rate 85 /min DR HERIBERTO CARABALLO MD [facility] 07-28-2021 09:53-0500 Respiratory rate 23 /min DR HERIBERTO CARABALLO MD [facility] 07-28-2021 09:53-0500 Systolic Blood Pressure NBP [address] HERIBERTO CARABALLO MD [facility] 07-28-2021 08:16-0500 Body height 177.[address] HERIBERTO CARABALLO MD [facility] 07-28-2021 08:16-0500 Body temperature 98.6 [degF] DR HERIBERTO CARABALLO MD [facility] 07-28-2021 08:16-0500 Body weight 95.[address] HERIBERTO CARABALLO MD [facility] 07-28-2021 08:16-0500 diastolic 93 mm[Hg] DR HERIBERTO CARABALLO MD [facility] 07-28-2021 08:16-0500 Heart rate 90 /min DR HERIBERTO CARABALLO MD [facility] 07-28-2021 08:16-0500 systolic 138 mm[Hg] DR HERIBERTO CARABALLO MD [facility] Encounters Encounter Date Encounter Type Care Provider Facility Start: 07-28-2021 End: 07-28-[address] HERIBERTO CARABALLO MD [facility] Start: 07-16-2021 End: 07-16-2021 Patient encounter procedure MARILYN ROSENBERG ARBORICULTURIST-SERVICE STATION OPERATOR [facility] Procedures Date Procedure Procedure Detail Performing Clinician Start: 02-08-2014 Prostate biopsy cortney le (specimen) MARILYN ROSENBERG ARBORICULTURIST-SERVICE STATION OPERATOR Start: 08-08-2009 Lipoma (disorder) DEBBIE ROSENBERG ARBORICULTURIST-SERVICE STATION OPERATOR Social History Date Type Detail Facility Start: 08-07-2019 Ex-smoker (finding) [facility] Assigned At [facility] Discharge instructions 07-28-2021 [...] until you are awake and alert. Take tosg-bld-wlqgvdy and prescription medicines only as told by [...] 04/11/2014 Document Revised: 06/03/2018 Document Reviewed: 10/10/2016 [employer] Patient Education 2020 [employer] 07/28/2021 10:13:38 Colonoscopy, Adult, Care After, Uvxg-yi-Kwwh Colonoscopy, Adult, Care After This sheet gives [...] are soft and easy to digest. Take sqxn-qvd-sejvixd or prescription medicines only as told by [...] 07/24/2011 Document Revised: 04/21/2018 Document Reviewed: 03/15/2017 [employer] Patient Education 2020 [employer]. 07/28/2021 10:12:49 Colon Polyps Colon Polyps Polyps [...] 03/17/2005 Document Revised: 10/06/2018 Document Reviewed: 10/06/2018 [employer] Patient Education 2020 [employer]. Follow Up Care 07/07/2021 14:17:36 With:HERIBERTO CARABALLO MD Address: [phone] When: Unknown Comments:Follow up as needed. [facility] Evaluation + Plan note Note Date & Type Note Facility Evaluation + Plan note Future Appointments [facility] Hospital course Narrative Note Date & Type Note Facility Hospital course Narrative No data available for this section [facility] Hospital Discharge instructions Note Date & Type Note Facility Hospital Discharge instructions No data available for this section [facility] Summary Purpose Family History No Family [...] BE BASED ON THE PRIMARY CLINICAL RECORDS. [facility]. provides no warranty or guarantee of the accuracy or completeness of information in this document.
--- NOTE | 2023-08-19 07:44 | NM_ITS ---
CLINICAL: 67-year-old male with history of primary prostate carcinoma. WHOLE BODY 99m Tc MDP RADIONUCLIDE BONE SCINTIGRAPHY COMPARISON: Previous whole body bone scintigraphy study dated 03/02/2023 FINDINGS: Following the intravenous administration of 26.0 mCi of 99m Tc MDP, whole body bone images reveal: 1. Newly visualized increased uptake is noted in the right proximal femur to include the femoral head and neck, persistently visualized in the bilateral ribs, heterogeneously apparent in the thoracic and lumbar spine, the left sacroiliac joint and distal left tibial diaphysis. 2. Enhanced uptake remains apparent in the acromioclavicular and sternoclavicular compartments of both shoulders, the patellofemoral compartment of the right knee. 3. The remaining skeletal structures are scintigraphically unremarkable with normal-appearing renal images and urinary bladder activity identified. 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 Accentuated uptake is noted in the lateral tibial plateau bilaterally most consistent with periostitis. NM/Bone Scan Whole Body IMPRESSION: 1. The increase in tracer uptake noted in the right proximal femur is most consistent with trauma-probable pathologic fracture. 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 2. 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 3. Uptake newly identified in the right proximal femur likely represents pathologic fracture with the remaining scintigraphic abnormalities relatively unchanged compared to the bone scintigraphy study dated 03/02/2023. Electronically Signed: Navarro Spear DO at 23:31 EST ,
== END | disposition home or self-care (01) ==
PROVIDERS: PCP Nurse Practitioner Primary Care; Referring Provider Nurse Practitioner Family; Visit Provider Nurse Practitioner Family
DX: C61 Malignant neoplasm of prostate (principal); C79.51 Secondary malignant neoplasm of bone
CPT/HCPCS: 78306; A9503

== ENCOUNTER → 2023-08-24 | Outpatient (CLI) | payer MEDICARE, SELFPAY ==
--- NOTE | 2023-08-24 11:53 | RAD_ITS ---
STUDY: X-RAY - PELVIS AND RIGHT HIP REASON FOR EXAM: Male, 68 years old. FINDINGS ON BONE SCAN TECHNIQUE: 3 views of the pelvis and hip. COMPARISON: None. FINDINGS: There is a non-specific bowel gas pattern. There are multiple calcified phleboliths. There is narrowing with cortical sclerosis and osteophyte formation of the sacroiliac joint consistent with degenerative osteoarthritic changes. Sclerotic lesions are seen overlying both sacral alae more prominent on the left side. There is evidence of a 4.3 cm x 2 cm lytic lesion in the inferior pubic ramus on the left side. A similar appearing lucency is seen in the left inferior pubic ramus measuring 2.4 cm x 4.6 cm. Metastatic deposit should be ruled out. Normal pubic symphysis. Normal bilateral ischial tuberosities. Normal visualized femoral head. There is osteoarthritic spur formation of the acetabular rim. is severe articular joint space narrowing of the hip. 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 Marked degree of joint space narrowing of the right hip joint. Electronically Signed: Raj Keller MD at 13:54 EST ,
--- OUTSIDE RECORDS SUMMARY | 2023-08-24 12:51 | XMS RPT_ITS | CCD ---
Author Name Unknown Address [address] [place] [address] Organization [facility] Care Team Providers Care Cisco Network Engineer Name Role Phone CHET RACHEL-MARILYN FLOR Primary [...] NBP [address] HERIBERTO CARABALLO MD [facility] 07-28-2021 10:09-0500 Heart rate 89 /min DR HERIBERTO CARABALLO MD [facility] 07-28-2021 10:09-0500 Respiratory rate 15 /min DR HERIBERTO CARABALLO MD [facility] 07-28-2021 10:09-0500 Systolic Blood Pressure NBP [address] HERIBERTO CARABALLO MD [facility] 07-28-2021 09:59-0500 Diastolic Blood Pressure NBP [address] HERIBERTO CARABALLO MD [facility] 07-28-2021 09:59-0500 Heart rate 87 /min DR HERIBERTO CARABALLO MD [facility] 07-28-2021 09:59-0500 Respiratory rate 17 /min DR HERIBERTO CARABALLO MD [facility] 07-28-2021 09:59-0500 Systolic Blood Pressure NBP [address] HERIBERTO CARABALLO MD [facility] 07-28-2021 09:53-0500 Diastolic Blood Pressure NBP [address] HERIBERTO CARABALLO MD [facility] 07-28-2021 09:53-0500 Heart rate 85 /min DR HERIBERTO CARABALLO MD [facility] 07-28-2021 09:53-0500 Respiratory rate 23 /min DR HERIBERTO CARABALLO MD [facility] 07-28-2021 09:53-0500 Systolic Blood Pressure NBP [address] HERIBERTO CARABALLO MD [facility] 07-28-2021 08:16-0500 Body height 177.[address] HERIBERTO CARABALLO MD [facility] 07-28-2021 08:16-0500 Body temperature 98.6 [degF] DR HERIBERTO CARABALLO MD [facility] 07-28-2021 08:16-0500 Body weight 95.[address] HERIBERTO CARABALLO MD [facility] 07-28-2021 08:16-0500 diastolic 93 mm[Hg] DR HERIBERTO CARABALLO MD [facility] 07-28-2021 08:16-0500 Heart rate 90 /min DR HERIBERTO CARABALLO MD [facility] 07-28-2021 08:16-0500 systolic 138 mm[Hg] DR HERIBERTO CARABALLO MD [facility] Encounters Encounter Date Encounter Type Care Provider Facility Start: 07-28-2021 End: 07-28-[address] HERIBERTO CARABALLO MD [facility] Start: 07-16-2021 End: 07-16-2021 Patient encounter procedure MARILYN ROSENBERG INSTRUCTIONAL TECHNOLOGY SPECIALIST-CIVIL LITIGATION ATTORNEY [facility] Procedures Date Procedure Procedure Detail Performing Clinician Start: 02-08-2014 Prostate biopsy cortney le (specimen) MARILYN ROSENBERG INSTRUCTIONAL TECHNOLOGY SPECIALIST-CIVIL LITIGATION ATTORNEY Start: 08-08-2009 Lipoma (disorder) DEBBIE ROSENBERG INSTRUCTIONAL TECHNOLOGY SPECIALIST-CIVIL LITIGATION ATTORNEY Social History Date Type Detail Facility Start: 08-07-2019 Ex-smoker (finding) [facility] Assigned [facility] Discharge instructions 07-28-2021 [...] until you are awake and alert. Take carv-qmc-pwaxtoj and prescription medicines only as told by [...] 04/11/2014 Document Revised: 06/03/2018 Document Reviewed: 10/10/2016 [employer] Patient Education 2020 [employer] 07/28/2021 10:13:38 Colonoscopy, Adult, Care After, Mcbw-bh-[id number] Colonoscopy, Adult, Care After This sheet gives [...] are soft and easy to digest. Take zdbj-vkj-lagdmqc or prescription medicines only as told by [...] 07/24/2011 Document Revised: 04/21/2018 Document Reviewed: 03/15/2017 [employer] Patient Education 2020 [employer]. 07/28/2021 10:12:49 Colon Polyps Colon Polyps Polyps [...] 03/17/2005 Document Revised: 10/06/2018 Document Reviewed: 10/06/2018 [employer] Patient Education 2020 [employer]. Follow Up Care 07/07/2021 14:17:36 With:HERIBERTO CARABALLO MD Address: [phone] When: Unknown Comments:Follow up as needed. [facility] Evaluation + Plan note Note Date & Type Note Facility Evaluation + Plan note Future Appointments [facility] Hospital course Narrative Note Date & Type Note Facility Hospital course Narrative No data available for this section [facility] Hospital Discharge instructions Note Date & Type Note Facility Hospital Discharge instructions No data available for this section [facility] Summary Purpose Family History No Family History [...] BE BASED ON THE PRIMARY CLINICAL RECORDS. [facility]. provides no warranty or guarantee of the accuracy or completeness of information in this document.
== END | disposition home or self-care (01) ==
LOC: RAD 11:50
PROVIDERS: PCP Nurse Practitioner Primary Care; Referring Provider Internal Medicine Hematology & Oncology; Visit Provider Internal Medicine Hematology & Oncology
DX: R93.89 Abnormal findings on diagnostic imaging of other specified body structures (principal)
CPT/HCPCS: 73502

== ENCOUNTER → 2023-10-06 | Outpatient (CLI) | payer MEDICARE, SELFPAY ==
--- NOTE | 2023-10-06 08:38 | EKG12_ITS ---
Test Reason : PRE-OP Blood Pressure : / mmHG Vent. Rate : 082 BPM Atrial Rate : 082 BPM P-R Int : 148 ms QRS Dur : 092 ms QT Int : 392 ms P-R-T Axes : 047 -05 016 degrees QTc Int : 457 ms Normal sinus rhythm Normal ECG Confirmed by SAULO VICENTE, DONTE ([id number]), film or videotape editor SHARMAINE LOU ([id number]) on 10/06/2023 10:56:07 AM Referred By: Cuca Osborne Confirmed By:DONTE VERNON MD
== END | disposition home or self-care (01) ==
PROVIDERS: PCP Nurse Practitioner Primary Care; Referring Provider Physician Assistant Surgical; Visit Provider Physician Assistant Surgical
DX: Z01.818 Encounter for other preprocedural examination (principal); M25.551 Pain in right hip
CPT/HCPCS: 93005

== ENCOUNTER → 2024-04-24 | Outpatient (CLI) | payer MEDICARE, SELFPAY ==
--- NOTE | 2024-04-24 08:43 | NM_ITS ---
CLINICAL: 68-year-old male with history of primary prostate carcinoma. WHOLE BODY 99m Tc MDP RADIONUCLIDE BONE SCINTIGRAPHY COMPARISON: Previous whole body bone scintigraphy study dated 08/19/2023 FINDINGS: Following the intravenous administration of 22.0 mCi of 99m Tc MDP, whole body bone images reveal: 1. On the current examination there is increased tracer uptake noted in the 12th thoracic, first-third lumbar vertebra, the left sacroiliac joint, distal left tibial metaphysis, the right anterior fifth rib. 2. Facilitated uptake is demonstrated in the patellofemoral compartment of the right knee, the acromioclavicular compartments of both shoulders, the sternoclavicular compartment of the right shoulder. 3. The remaining skeletal structures are scintigraphically unremarkable with normal-appearing renal images and urinary bladder activity identified. Apparent bilateral knee hemiarthroplasties are unchanged. There is interim placement of a right hip arthroplasty. NM/Bone Scan Whole Body IMPRESSION: 1. The increase in radiopharmaceutical concentration defined in the thoracic and lumbar spine, left sacroiliac joint, right anterior chest wall-distal left tibial metaphysis most consistent with osteoblastic turnover attributed to skeletal metastatic disease. 2. Degenerative arthritis appears apparent in the patellofemoral compartment of the right knee, the bilateral shoulders. 3. Overall compared to the previous whole body bone scintigraphy study dated 08/19/2023, there is minimal interval change. Electronically Signed: Navarro Spear DO at 8:20 EDT ,
== END | disposition home or self-care (01) ==
LOC: NM 08:41
PROVIDERS: PCP Nurse Practitioner Primary Care; Referring Provider Nurse Practitioner Family; Visit Provider Nurse Practitioner Family
DX: C61 Malignant neoplasm of prostate (principal); C79.72 Secondary malignant neoplasm of left adrenal gland; C78.01 Secondary malignant neoplasm of right lung; C78.02 Secondary malignant neoplasm of left lung; C79.51 Secondary malignant neoplasm of bone
CPT/HCPCS: 78306; A9503

== ENCOUNTER → 2024-04-27 | Outpatient (CLI) | payer MEDICARE, SELFPAY ==
--- NOTE | 2024-04-27 12:51 | CT_ITS ---
STUDY: CT CHEST, ABDOMEN T PELVIS WITH CONTRAST REASON FOR EXAM: Male, 68 years old. met prostate ca. RADIATION DOSAGE (If Supplied By Facility): CTDIvol = ( 19.26 ) mGy, DLP = ( 1919.98 ) mGycm TECHNIQUE: Transaxial imaging was performed following intravenous administration of IV 100mL Isovue-300. Multiplanar coronal and sagittal images were reformatted. Individualized dose optimization techniques were used for this CT. COMPARISON: Comparison is made with prior study August 16, 2023. FINDINGS: CHEST The lungs are normal. There is no demonstrated pleural abnormality. There are calcifications of the coronary arteries. Minimal degree of anterior pericardial thickening. Normal mediastinum. Normal hilar regions. Normal unenhanced pulmonary arteries. Normal aorta arch and descending thoracic aorta. There are multi-level degenerative changes of the thoracic spine. Sclerotic metastases are seen in several thoracic and lumbar vertebrae. Prior vertebroplasty of the L1 and L2 vertebrae. Focal sclerotic metastasis in the anterior lower rib on the right. Focal sclerosis in the body of the sternum. ABDOMEN There is decreased attenuation of the liver consistent with steatosis. Normal gallbladder and extrahepatic biliary system. Normal spleen. Normal pancreas. There is a small, circumscribed, smooth, low attenuation left adrenal mass, consistent with an adrenal adenoma. Normal right adrenal gland. Normal right kidney. Normal left kidney. Normal visualized stomach. Normal small intestine. There are multiple colonic diverticula consistent with diverticulosis. The appendix is visualized and appears normal. There is diffuse atherosclerotic calcification of the abdominal aorta, without a demonstrated aneurysm. Normal inferior vena cava. Normal retroperitoneum. Stable small bilateral inguinal hernias containing fat. Stable sclerotic metastasis involving the sacrum as well as the left iliac bone in the lumbar vertebrae. PELVIS Mild degree of bladder wall thickening. Normal visualized small intestine. Normal visualized colon. There is no pelvic fluid. There is no pelvic lymphadenopathy or mass lesion. There is no demonstrated injury of the pelvic arteries. There is a 2.5 cm lipoma in the left gluteus muscle. CT/CT Chest, Abd, Pel w/Contrast IMPRESSION: Stable examination. Electronically Signed: Raj Keller MD at 14:34 EDT ,
[2024-04-27 13:19] LABS: CREATININE FINGERSTICK 1.2 mg/dL (0.70-1.30); EGFR FINGERSTICK > 60.0000 mL/min (>60)
== END | disposition home or self-care (01) ==
PROVIDERS: PCP Nurse Practitioner Primary Care; Referring Provider Internal Medicine Hematology & Oncology; Visit Provider Internal Medicine Hematology & Oncology
DX: C61 Malignant neoplasm of prostate (principal); C79.72 Secondary malignant neoplasm of left adrenal gland; C78.01 Secondary malignant neoplasm of right lung; C78.02 Secondary malignant neoplasm of left lung; C79.51 Secondary malignant neoplasm of bone
CPT/HCPCS: 71260; 74177; Q9967

== ENCOUNTER → 2024-10-17 | Outpatient (CLI) | payer MEDICARE, SELFPAY ==
--- NOTE | 2024-10-17 06:46 | CT_ITS ---
PROCEDURE: CT CHEST, ABD, PEL W/CONTRAST 10/17/2024 REASON FOR EXAM: IV CONTRAST ONLY; MET PROSTATE CA TECHNIQUE: Chest, abdomen and pelvis CT with intravenous contrast. Coronal and Sagittal reconstruction series were provided. One or more dose reduction techniques were used (e.g., Automated exposure control, adjustment of the mA and/or kV according to patient size, use of iterative reconstruction technique. PATIENT PREPARATION: Per protocol ORAL CONTRAST TYPE: None. CONTRAST: Isovue 370 VOLUME: 94mL RADIATION DOSE SUMMARY: CTDlvol: 26 mGy DLP: 2071.27 mGycm COMPARISON: Comparison is made with prior study dated April 27, 2024. FINDINGS: CT CHEST: Hardware: None Lymph nodes: No mediastinal lymph nodes are seen. Heart and Vasculature: Coronary artery calcification. Lungs and Airways: Mild emphysematous changes are present. Pleura: Unremarkable Bones: Degenerative changes of the thoracic spine. Osteoblastic metastasis involving the upper thoracic as well as mid and lower thoracic vertebrae. Sclerotic changes seen along the posterior aspect of the right 3rd and 4th ribs. Stable sclerosis of the lower sternal body. CT ABDOMEN/PELVIS: Liver: Normal size. No mass. Gallbladder: The gallbladder is contracted. Spleen: Normal size. Pancreas: Normal size without evidence of mass surrounding inflammation or ductal dilation. Adrenals: 1.3 cm fatty lesion in the crux of the left adrenal gland suggestive of a small lipoma. Kidneys: Normal renal sizes. No hydronephrosis. Bladder: Mild degree of bladder wall thickening. Status post prostatectomy. Bowel: Colonic diverticulosis without diverticulitis. Appendix: The appendix is not identified. There is no inflammatory process identified in the right lower quadrant to suggest appendicitis. Lymph nodes: Unremarkable. Vasculature: Mild diffuse atherosclerotic calcifications are noted. Peritoneum / Retroperitoneum: Unremarkable Bones: Prior vertebroplasty of the L1 and L2 vertebrae with the sclerotic metastasis of the lower thoracic vertebrae as well as the sacrum and pelvic bones. Prior right total hip replacement. CT/CT Chest, Abd, Pel w/Contrast IMPRESSION: Skeletal metastasis as described. There has been essentially no change since prior study. Reading Location: [place] [id number]
== END | disposition home or self-care (01) ==
LOC: CT 06:45
PROVIDERS: PCP Nurse Practitioner Primary Care; Referring Provider Nurse Practitioner Family; Visit Provider Nurse Practitioner Family
DX: C78.02 Secondary malignant neoplasm of left lung (principal); C78.01 Secondary malignant neoplasm of right lung; C79.72 Secondary malignant neoplasm of left adrenal gland; C79.51 Secondary malignant neoplasm of bone; C61 Malignant neoplasm of prostate
CPT/HCPCS: 71260; 74177

== ENCOUNTER → 2024-10-20 | Outpatient (CLI) | payer MEDICARE, SELFPAY ==
--- NOTE | 2024-10-20 08:00 | NM_ITS ---
PROCEDURE: BONE SCAN WHOLE BODY 10/20/2024 REASON FOR EXAM: PROSTATE CA MET TO BONE TECHNIQUE: Whole-body bone scan with anterior and posterior views. Imaging at 3.5 hours. RADIOPHARMACEUTICAL: 27.3 mCi Technetium-99m MDP IV COMPARISON: CORRELATION WITH EXISTING RELEVANT IMAGING STUDIES (i.e. x-ray, MRI, CT, etc.): Comparison is made with prior study dated April 24, 2024. FINDINGS: Bones: Stable uptake in the posterior medial aspects of the left 11th and 12th ribs as well as within the lumbar and thoracic vertebrae. Persistent increased uptake seen in the sacroiliac joints bilaterally more prominent on the left side. Stable examination. The patient is status post right hip replacement. Kidneys: Symmetrical uptake. NM/Bone Scan Whole Body IMPRESSION: Stable examination. Reading Location: [id number]
== END | disposition home or self-care (01) ==
LOC: NM 07:58
PROVIDERS: PCP Nurse Practitioner Primary Care; Referring Provider Nurse Practitioner Family; Visit Provider Nurse Practitioner Family
DX: C61 Malignant neoplasm of prostate (principal); C79.72 Secondary malignant neoplasm of left adrenal gland; C78.01 Secondary malignant neoplasm of right lung; C78.02 Secondary malignant neoplasm of left lung; C79.51 Secondary malignant neoplasm of bone
CPT/HCPCS: 78306; A9503

== ENCOUNTER → 2025-05-14 | Outpatient (CLI) | payer MEDICARE, SELFPAY ==
--- NOTE | 2025-05-14 13:05 | CT_ITS ---
PROCEDURE: CT CHEST, ABD, PEL W/CONTRAST 05/14/2025 REASON FOR EXAM: MET PROSTATE CA TECHNIQUE: Chest, abdomen and pelvis CT with intravenous contrast. Coronal and Sagittal reconstruction series were provided. One or more dose reduction techniques were used (e.g., Automated exposure control, adjustment of the mA and/or kV according to patient size, use of iterative reconstruction technique. PATIENT PREPARATION: Per protocol ORAL CONTRAST TYPE: None. CONTRAST: [id number] VOLUME: 100mL RADIATION DOSE SUMMARY: CTDlvol: 20 mGy DLP: 2000.89 mGycm COMPARISON: October 17, 2024. FINDINGS: CT CHEST: Hardware: None Lymph nodes: No significant hilar or mediastinal lymph nodes are seen. Heart and Vasculature: Mild degree of anterior pericardial thickening suggestive of small pericardial effusion. Coronary artery calcification. Lungs and Airways: No pulmonary nodule is seen. Minimal degree of linear scarring in the posterior lingular segment of the left upper lobe. Pleura: No pleural effusion. Bones: Sclerosis of a mid dorsal vertebrae. Sclerosis of lower vertebrae and upper lumbar vertebrae suggestive of metastatic deposits. Once again, sclerosis is seen in the lower portion of the sternal body. 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 There has been no change. CT ABDOMEN/PELVIS: Liver: Normal size. No mass. Gallbladder: . Spleen: Normal size. Pancreas: Normal size without evidence of mass surrounding inflammation or ductal dilation. Adrenals: Left adrenal nodule consistent with an adenoma Kidneys: Normal renal sizes. No hydronephrosis. Bladder: Mild degree of diffuse bladder wall thickening. Status post prostatectomy. Bowel: Colonic diverticulosis without diverticulitis. Appendix: The appendix is not identified. There is no inflammatory process identified in the right lower quadrant to suggest appendicitis. Lymph nodes: Unremarkable. Vasculature: Mild diffuse atherosclerotic calcifications are noted. Peritoneum / Retroperitoneum: Unremarkable Bones: Prior vertebroplasty of the L1 and L2 vertebrae. Sclerotic metastasis seen in the sacrum as well as at the T11 vertebrae. Status post left total hip replacement. 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 Tiny gallstones in the contracted Essentially stable examination. Reading Location: [place] [id number]
== END | disposition home or self-care (01) ==
LOC: CT 12:47
PROVIDERS: PCP Nurse Practitioner Primary Care; Referring Provider Nurse Practitioner Family; Visit Provider Nurse Practitioner Family
DX: C61 Malignant neoplasm of prostate (principal); C79.72 Secondary malignant neoplasm of left adrenal gland; C78.01 Secondary malignant neoplasm of right lung; C78.02 Secondary malignant neoplasm of left lung; C79.51 Secondary malignant neoplasm of bone
CPT/HCPCS: 71260; 74177; Q9967; A4216

== ENCOUNTER → 2025-05-18 | Outpatient (CLI) | payer MEDICARE, SELFPAY ==
--- NOTE | 2025-05-18 08:46 | NM_ITS ---
PROCEDURE: BONE SCAN WHOLE BODY 05/18/2025 REASON FOR EXAM: MET PROSTATE CANCER TECHNIQUE: Procedure Code: NMBO Modality: NM Procedure: BONE SCAN WHOLE BODY Whole-body bone scan with anterior and posterior views. Imaging at 3.5 hours. RADIOPHARMACEUTICAL: 27.4 mCi Technetium-99m MDP IV COMPARISON: Bone scan examinations of 10/20/2024 and of 04/24/2024. FINDINGS: Areas of increased uptake in the distal left tibia, of the left lower thoracic and upper lumbar spine, the posterior left 11th and 12th ribs, the proximal through mid right femur, and the inferior sternum appear unchanged. No new or worsened process is noted. Degenerative changes of the knees, sternoclavicular joints ([id number]), and spine are also seen. NM/Bone Scan Whole Body IMPRESSION: Stable examination again noted, with min of the areas again concerning for sequ elae of osseous metastatic disease. No new or worsened process is noted. Reading Location: [place] [id number]
== END | disposition home or self-care (01) ==
LOC: NM 08:46
PROVIDERS: PCP Nurse Practitioner Primary Care; Referring Provider Nurse Practitioner Family; Visit Provider Nurse Practitioner Family
DX: C61 Malignant neoplasm of prostate (principal); C79.72 Secondary malignant neoplasm of left adrenal gland; C78.01 Secondary malignant neoplasm of right lung; C78.02 Secondary malignant neoplasm of left lung; C79.51 Secondary malignant neoplasm of bone
CPT/HCPCS: 78306; A9503